=== PATIENT | female | born 1965 | race Caucasian/White ===

== ENCOUNTER 2018-07-30 10:49 | Emergency (ER) | payer BC ==
[2018-07-30 11:11] VITALS: O2SAT 98
[2018-07-30] MEDS ORDERED: ROCEPHIN 1 Gm-D5w 50 ml Bag** 1 G/50 ML IVPB IV STA (11:20)
[2018-07-30] MEDS ORDERED: ROCEPHIN 1 Gm-D5w 50 ml Bag** 1 G/50 ML IVPB IV ONE (11:23)
--- NOTE | 2018-07-30 11:25 | ERPHSYRPT ---
- History of Present Illness Time Seen by Provider: 07/30/18 11:19 Source: patient, family Exam Limitations: no limitations Patient Subjective Stated Complaint: cough and SOB x 1 week. increase feeling of SOB today. staates tightness and feeling that she could not get a deep breath approx 1 hour [employer]. cougheing up green stuff.and nasal congestion.. grand child has RSV Triage Nursing Assessment: alert and slightly anxious. states has had an episode where she feels like she cant get a deep breath and slight tightness. has had a cough where she has coughed up green . has had nasal congestion. her grand daughter has had RSV. Lungs clear bilaterally. Physician History: The patient is a 53-year-old female with her daughter complaining that she has a worsening cough with green sputum for one week. Today she felt like she couldn't take a deep breath. She is a smoker. Her past medical history significant for COPD and diabetes. Timing/Duration: week(s) (1), gradual onset, worse Cough Quality/Degree: moderate, productive cough, sputum (green) Possible Cause: occasional episodes, smoke exposure Modifying Factors: Improves With: coughing Associated Symptoms: cough, shortness of breath, No fever, No wheezing Allergies/Adverse Reactions: No Known Drug Allergies Allergy (Unverified 06/28/16 08:16) Home Medications: Glyburide 2.5 mg PO BID 11/09/15 [History] Metformin HCl 500 mg [Glucophage 500 MG] 500 mg PO BID 11/09/15 [History] Hx Tetanus, Diphtheria Vaccination/Date Given: (unknown) Hx Influenza Vaccination/Date Given: Yes Hx Pneumococcal Vaccination/Date Given: Yes - Review of Systems Constitutional: No Fever, No Chills Eyes: No Symptoms Ears, Nose, & Throat: No Symptoms Respiratory: Cough, Dyspnea, No Wheezing Cardiac: No Chest Pain, No Edema, No Syncope Abdominal/Gastrointestinal: No Abdominal Pain, No Nausea, No Vomiting, No Diarrhea Genitourinary Symptoms: No Dysuria Musculoskeletal: No Back Pain, No Neck Pain Skin: No Rash Neurological: No Dizziness, No Focal Weakness, No Sensory Changes Psychological: No Symptoms Endocrine: No Symptoms Hematologic/Lymphatic: No Symptoms Immunological/Allergic: No Symptoms All Other Systems: Reviewed and Negative - Past Medical History Pertinent Past Medical History: Yes Cardiac History: High Cholesterol Endocrine Medical History: Diabetes Type II Musculoskeletal History: No Pertinent History GI Medical History: No Pertinent History History: No Pertinent History Female Reproductive Disorders: No Pertinent History - Past Surgical History Past Surgical History: Yes Gastrointestinal: Appendectomy Female Surgical History: Hysterectomy - Social History Smoking Status: Current every day smoker How long have you smoked: 25 years Exposure to second hand smoke: No Drug Use: none Patient Lives Alone: No Significant Family History: heart disease, diabetes (mother with PA in her 50's multiple family members with type 2 diabetes) - Female History Hx Now: No - Nursing Vital Signs Nursing Vital Signs: Initial Vital Signs Pulse Rate 79 07/30/18 11:00 Respiratory Rate 18 07/30/18 11:00 Blood Pressure 153/67 07/30/18 11:00 O2 Sat by Pulse Oximetry 98 07/30/18 11:00 Pain Scale Pain Intensity 4 - Physical Exam General Appearance: no apparent distress, alert Eye Exam: PERRL/EOMI, eyes nml inspection Ears, Nose, Throat Exam: normal ENT inspection, TMs normal, pharynx normal, moist mucous membranes Neck Exam: normal inspection, non-tender, supple, full range of motion Respiratory Exam: normal breath sounds, lungs clear, No wheezing Cardiovascular Exam: regular rate/rhythm, normal heart sounds Gastrointestinal/Abdomen Exam: soft, No tenderness Pelvic Exam: not done Rectal Exam: not done Back Exam: normal inspection, No CVA tenderness, No vertebral tenderness Extremity Exam: normal inspection, normal range of motion Neurologic Exam: alert, oriented x 3, cooperative, normal mood/affect, sensation nml, No motor deficits Skin Exam: normal color, warm, dry, No rash Lymphatic Exam: No adenopathy SpO2 Interpretation: normal SpO2: 98 Oxygen Delivery: Room Air Ordered Tests: Active Orders 24 hr Category Date Time Status EKG-ER Only STAT Care 07/30/18 11:13 Active IV Insertion STAT Care 07/30/18 11:13 Active - Progress Air Movement: good Progress Note: 07/30/18 11:25 I discussed the option with the patient of having a chest x-ray followed by antibiotics for no chest x-ray and receiving antibiotic. The patient declined the x-ray and wants antibiotics. Blood Culture(s) Obtained: No Antibiotics given: Yes Counseled pt/family regarding: diagnosis, need for follow-up - Departure Time of Disposition: 11:25 Departure Disposition: Home Clinical Impression: Bronchitis Condition: Stable Critical Care Time: No Referrals: EMEKA GARVIN [Primary Care Provider] - Additional Instructions: You have bronchitis. You were given Rocephin 1 g by IV in the ER. Continue with azithromycin 500 mg on day one followed by 250 mg daily for days 2 through 5. Follow-up with your primary medical doctor on Tuesday as already scheduled. Prescriptions: Azithromycin 250 mg [Zithromax 250 MG TABLET] 250 mg PO ZPACK #6 tablet
[2018-07-30 11:49] VITALS: BP 127/57; PULSE 76
== END 2018-07-30 11:53 | disposition home or self-care (01) ==
LOC: ED 10:49
DX: J40 Bronchitis, not specified as acute or chronic (principal); E11.9 Type 2 diabetes mellitus without complications; Z79.4 Long term (current) use of insulin; E78.00 Pure hypercholesterolemia, unspecified; Z72.0 Tobacco use
CPT/HCPCS: 36000; 93005; 96365; 99284; J0696

== ENCOUNTER 2022-08-18 04:45 | Day surgery (SDC) | payer BC ==
[2022-08-18] MEDS ORDERED: Lactated Ringers 1,000 ML IV SCH (05:30)
[2022-08-18] MEDS ORDERED: CEFAZOLIN 2 GM-D5W BAG** 2 GM/50 ML ML IV SCH (05:30)
[2022-08-18 06:06] LABS: ANION GAP 9.3 MEQ/L (5-15); BLOOD UREA NITROGEN 15 mg/dL (7-17); CHLORIDE 106 mmol/L (98-107); Calcium 9.4 mg/dL (8.4-10.2); Carbon Dioxide 24 mmol/L (22-30); Creatinine 1 0.47 mg/dL (0.52-1.04); EST GLOMERULAR FILTRATION RATE > 60.0 ML/MIN; Glucose 144 mg/dL (74-106); SODIUM 136 mmol/L (137-145)
[2022-08-18] MEDS ORDERED: DIPRIVAN 200 MG/20 ML IV ONE (06:18)
[2022-08-18] MEDS ORDERED: SUBLIMAZE 100 MCG/2 ML ONE (06:18)
[2022-08-18] MEDS ORDERED: Versed 2 MG/2 ML Injection ONE (06:19)
[2022-08-18] MEDS ORDERED: Xylocaine 1% Vial 30 ML PF IJ ONE (06:24)
[2022-08-18] MEDS ORDERED: Zemuron 100 MG/10 ML ONE (06:25)
[2022-08-18] MEDS ORDERED: Marcaine Mpf 0.5% Vial 30 Ml ONE (06:30)
[2022-08-18] MEDS ORDERED: Xylocaine-Mpf 2% 5 Ml Vial ONE (06:40)
[2022-08-18] MEDS ORDERED: BRIDION 200MG/2ML IV ONE (07:32)
--- NOTE | 2022-08-18 08:37 | XRAY ---
32 seconds fluoroscopy time in surgery for soft tissue mass excision of the right foot.
[2022-08-18 09:15] VITALS: BP 129/63; PULSE 72; O2SAT 95
--- NOTE | 2022-08-18 09:41 | XRAY ---
Indication: Right foot soft tissue mass excision. Intraoperative fluoroscopy provided for 32 seconds. 3 digital spot images submitted for interpretation demonstrates manipulation of the great toe. Correlate with intraoperative findings/report.
--- NOTE | 2022-08-18 13:59 | OP ---
SURGERY DATE/TIME: 08/18/2022 0631 PREOPERATIVE DIAGNOSES: 1) Soft tissue mass/neoplasm of unknown origin right hallux. 2) Exostosis distal phalanx hallux. 3) Osteoarthritis interphalangeal joint right hallux. 4) Pain right foot. POSTOPERATIVE DIAGNOSES: 1) Soft tissue mass/neoplasm of unknown origin right hallux. 2) Exostosis distal phalanx hallux. 3) Osteoarthritis interphalangeal joint right hallux. 4) Pain right foot. PROCEDURES: 1) Excision of soft tissue mass/neoplasm of unknown origin. 2) Exostectomy of distal interphalangeal joint. SURGEON: Greg Packer DPM. VENDETTE: None. ANESTHESIA: General plus a postoperative local of 30 cc of 1:1 mixture of 1% lidocaine plain and 0.5% bupivacaine plain injected in a Ramirez type block fashion. HEMOSTASIS: Ankle tourniquet set to 250 mm of Mercury for 23 total tourniquet minutes. ESTIMATED BLOOD LOSS: Minimal. INJECTABLES: 30 cc of 1:1 mixture of 1% lidocaine plain and 0.5% bupivacaine plain. INDICATION FOR SURGERY: Aidee is a very pleasant 57-year-old female who presented to my service with concerns over pain for a callous that was developing underneath hallux of the right foot. The patient indicates that the callous was slowly growing over time and causing her significant amount of pain with ambulation. At this time the patient indicates that the mass started approximately six months ago and has continuously gotten bigger. From that clinical exam revealed that there was pain with palpation to the distal interphalangeal joint and crepitation with range of motion. X-rays were taken confirming exostoses at the medial aspect of the joint. However, the majority of the joint was free of arthritic changes. Given the patient's pain, she did have a significant amount of pain with palpation to the plantar lateral aspect of the interphalangeal joint and for that MRI was obtained. MRI demonstrated a soft tissue mass with dimensions measuring 1.2 x 2.9 x 2.2 cm. From that standpoint the decision was made at the request of the patient to proceed with surgical intervention for removal of the cyst and addressing changes to the medial aspect of the interphalangeal joint. The patient understands all risks, complications and benefits of the procedure including but not limited to infection, hematoma, seroma, possibility of delayed skin healing, possibility of nonskin healing, possibility of failure of surgical intervention, possibility of recurrence of soft tissue mass and possible need for surgical intervention at a later date. No guarantees were provided as to the outcome of surgical intervention at this time. Plenty of time was allowed for the patient to ask questions to her apparent satisfaction. It is with that we decided to proceed. DESCRIPTION OF PROCEDURE AND FINDINGS: The patient is brought into the OR and placed on the OR table in the supine position. At this time general anesthesia was administered until the patient was sedated. The patient's right lower extremity had ankle tourniquet placed and the tourniquet was set to 250 mm of Mercury. At this time the right foot was prepped and draped in the typical sterile fashion and lowered onto the surgical field. At this time attention was directed to the medial aspect of the distal interphalangeal joint of the right hallux. Careful tedious dissection was carried out utilizing a 15 blade at the junction of the moccasin line in order to make sure we did not damage the plantar or sensory nerves in this area. At this time careful dissection was carried down to the plantar aspect of the distal interphalangeal joint where the soft tissue mass was encountered almost immediately. The soft tissue mass was resected being careful not to damage the flexor tendon just dorsal to the incision site. The consistency of the mass of the mass did appear to be similar to that of a ganglion cyst with encapsulation at the plantar lateral aspect of the distal interphalangeal joint. It did look like it extended further proximally which was carried down to the level of the base of the proximal phalanx this was then cauterized with electrocautery on 40. At this time the site was flushed. X-rays were taken demonstrating the exostosis at the distal phalanx this was resected utilizing a combination of rongeurs and a hand rasp. At this time copious amounts of sterile saline were utilized to flush the site. Fluoroscopy was taken demonstrating removal of the exostosis. Copious amounts of sterile saline were utilized to flush the site once more and 4-0 Monocryl was utilized to coapt the subcutaneous edges in a simple buried-type fashion. The skin was then coapted utilizing a 3-0 Nylon in horizontal mattress-type fashion. At this time tourniquet was let down prior to closure at 23 total tourniquet minutes. A dressing consisting of Betadine, Adaptic, 4x4, Kerlix and PHANI were then applied to the right foot. The patient was then reversed from anesthesia and returned to the postoperative anesthesia care unit with vital signs stable and vascular status intact. The patient handled the anesthesia as well as procedure without significant complication. Postoperative orders as indicated in the patient's discharge chart.
== END 2022-08-18 09:05 | disposition home or self-care (01) ==
LOC: SDC 04:45
PROVIDERS: ATTEND Podiatrist Foot & Ankle Surgery
DX: M06.371 Rheumatoid nodule, right ankle and foot (principal); M79.671 Pain in right foot; M19.071 Primary osteoarthritis, right ankle and foot; M25.774 Osteophyte, right foot
CPT/HCPCS: 28124; 28309; 36415; 73630; 76000; 80048; 93005; J0690; J2001; J2250; J2704; J3010

== ENCOUNTER 2023-02-10 17:53 | Observation (INO) | payer BC ==
[2023-02-10 18:51] LABS: Absolute Neutrophil Ct (ANC) 7.38 x10^3/uL (1.4-6.9); BASOPHIL % 0.5 % (0.0-0.4); Basophil (Absolute #) 0.05 x10^3/uL (0-0.4); Eosinophil % 1.2 % (0.00-5.0); Eosinophil (Absolute #) 0.12 x10^3/uL (0-0.5); Hematocrit 40.3 % (35-47); IMMATURE GRAN # 0.02 x10^3u/L (0.00-0.03); IMMATURE GRAN % 0.2 % (0.00-0.4); Lymphocyte (Absolute #) 1.81 x10^3/uL (1.0-4.6); Lymphocytes % 17.6 % (24.0-44.0); Mean Cell Volume 91.4 fL (78-100); Mean Corpuscular Hemoglobin 29.5 pg (26-32); Mean Corpuscular Hgb Concent. 32.3 g/dL (32-36); Mean Platelet Volume 12.5 fL (7.5-11.0); Monocyte (Absolute #) 0.88 x10^3/uL (0.0-1.3); Monocytes % 8.6 % (0.0-12.0); Neutrophil % 71.9 % (36.0-66.0); Platelet Count 162 x10^3/uL (150-450); Red Blood Count 4.41 x10^6/uL (4.1-5.4); Red Cell Distribution Width 13.7 % (11.5-14.0); White Blood Count 10.3 x10^3/uL (4.0-10.5)
[2023-02-10] MEDS ORDERED: PIPERACILLIN/TAZOBACTAM 3.375 GM in Sodium Chloride 100ML MINI-BAG PLUS 100 ML IV ONE (18:55)
[2023-02-10] MEDS ORDERED: VANCOMYCIN 1 GRAM/200 ML BAG 1 GM/200 ML PIGGYBACK IV ONE ×2 (18:56→19:42)
[2023-02-10 19:04] LABS: ALBUMIN 4.7 g/dL (3.5-5.0); ALKALINE PHOSPHATASE 89 U/L (38-126); ANION GAP 15.7 MEQ/L (5-15); BLOOD UREA NITROGEN 8 mg/dL (7-17); CHLORIDE 103 mmol/L (98-107); Calcium 9.6 mg/dL (8.4-10.2); Carbon Dioxide 26 mmol/L (22-30); EST GLOMERULAR FILTRATION RATE > 60.0 ML/MIN; Glucose 163 mg/dL (74-106); SGOT/AST 36 U/L (14-36); SGPT/ALT 25 U/L (0-35); SODIUM 141 mmol/L (137-145)
[2023-02-10] MEDS ORDERED: PIPERACILLIN/TAZOBACTAM IV ONE (19:05)
[2023-02-10] MEDS ORDERED: Sodium Chloride 100ML MINI-BAG PLUS 100 ML IV ONE (19:05)
[2023-02-10] MEDS ORDERED: TYLENOL 325 MG PO STA (19:12)
[2023-02-10] MEDS ORDERED: TYLENOL 325 MG ONE (19:13)
--- NOTE | 2023-02-10 19:17 | ERPHSYRPT ---
- History of Present Illness Time Seen by Provider: 02/10/23 19:09 Source: patient Exam Limitations: no limitations Patient Subjective Stated Complaint: pt here for possible wound infection to bottom of right great toe, she states she had surg on toe in jul 2022 and it dev loped a callouse and this week the callouse fell off and she saw a "black hole" it now has calloused over and has swelling with redness Triage Nursing Assessment: pt alert, walked in, resp easy, skin w/d/p. has callouse to bottom of right great toes, she has swelling to right foot with red streaking goes up right leg Physician History: Patient is a 57-year-old male presents to our ED for evaluation of right foot cellulitis. Patient is a diabetic. Patient had surgery on August 17. Patient states since that time she developed a callus. Patient observed the callus to become infected. Symptoms started Tuesday 5 days ago. Symptoms have progressed. Patient now has cellulitis to the right foot as well as lymphangitis tracking up her leg. No fever or other systemic manifestations. No nausea or vomiting. No trauma. Symptoms are moderate in intensity. No specific worsening improving factors. Patient denies a history of the same. She voices no other complaints or concerns at this time. Portions of this note were created with voice recognition technology. There may be grammatical, spelling, punctuation or sound alike errors Timing/Duration: day(s) Severity: moderate (5 days ago) Modifying Factors: Improves With: nothing Associated Symptoms: denies symptoms Allergies/Adverse Reactions: No Known Drug Allergies Allergy (Verified 02/10/23 18:04) Home Medications: Aspirin [Low Dose Aspirin EC] 81 mg PO DAILY 08/10/22 [History] Cholecalciferol (Vitamin D3) [Vitamin D] 50 mcg PO DAILY 08/10/22 [History] Ezetimibe 10 mg [Zetia 10 MG] 10 mg PO DAILY 08/10/22 [History] Folic Acid 1 mg PO DAILY 08/10/22 [History] Insulin Lispro [Humalog] 2 units SQ TID 08/10/22 [History] Leflunomide 20 mg PO DAILY 08/10/22 [History] Levothyroxine Sodium 50 Mcg [Synthroid 50 Mcg] 75 mcg PO DAILY 08/10/22 [History] Simvastatin 20Mg [Zocor 20Mg] 40 mg PO DAILY 08/10/22 [History] Sitagliptin Phos/Metformin HCl [Janumet Xr 100-1,000 mg Tablet] 50 - 500 mg PO BID 08/10/22 [History] Hx Tetanus, Diphtheria Vaccination/Date Given: No Hx Influenza Vaccination/Date Given: Yes Hx Pneumococcal Vaccination/Date Given: Yes Immunizations Up to Date: Yes Travel Risk - International Travel Have you traveled outside of the country in past 3 weeks: No - Coronavirus Screening Are you exhibiting any of the following symptoms?: No - Vaccine Status Have you recieved a Covid-19 vaccination: Yes [place]: Moderna - Vaccination Dates Date of 2cond Vaccination (if applicable): 2020 - Review of Systems Constitutional: No Symptoms, No Fever, No Chills Eyes: No Symptoms Ears, Nose, & Throat: No Symptoms Respiratory: No Symptoms, No Cough, No Dyspnea Cardiac: No Symptoms, No Chest Pain, No Edema, No Syncope Abdominal/Gastrointestinal: No Symptoms, No Abdominal Pain, No Nausea, No Vomiting, No Diarrhea Genitourinary Symptoms: No Symptoms, No Dysuria Musculoskeletal: No Symptoms, No Back Pain, No Neck Pain Skin: No Symptoms, No Rash Neurological: No Symptoms, No Dizziness, No Focal Weakness, No Sensory Changes Psychological: No Symptoms Endocrine: No Symptoms Hematologic/Lymphatic: No Symptoms Immunological/Allergic: No Symptoms All Other Systems: Reviewed and Negative - Past Medical History Pertinent Past Medical History: Yes Neurological History: No Pertinent History Cardiac History: High Cholesterol Respiratory History: No Pertinent History Endocrine Medical History: Diabetes Type II, Hypothyroidism Musculoskeletal History: No Pertinent History GI Medical History: No Pertinent History History: No Pertinent History Psycho-Social History: No Pertinent History Female Reproductive Disorders: No Pertinent History Other Medical History: rhemotoid arthritis - Past Surgical History Past Surgical History: Yes Neuro Surgical History: No Pertinent History Cardiac: No Pertinent History Respiratory: No Pertinent History Gastrointestinal: Appendectomy Musculoskeletal: Orthopedic Surgery Female Surgical History: Hysterectomy, Tubal Ligation Other Surgical History: surgery both hands and right elbow,foot surg - Social History Smoking Status: Current every day smoker How long have you smoked: 40 yrs Exposure to second hand smoke: Yes Drug Use: none Patient Lives Alone: No Significant Family History: heart disease, diabetes (mother with [place] in her 50's multiple family members with type 2 diabetes) - Nursing Vital Signs Nursing Vital Signs: Initial Vital Signs Temperature 97.9 F 02/10/23 18:14 Pulse Rate 92 H 02/10/23 18:14 Respiratory Rate 18 02/10/23 18:14 Blood Pressure 141/74 02/10/23 18:14 O2 Sat by Pulse Oximetry 95 02/10/23 18:14 Pain Scale Pain Intensity 7 - Physical Exam General Appearance: no apparent distress, alert Eye Exam: PERRL/EOMI, eyes nml inspection Ears, Nose, Throat Exam: normal ENT inspection, TMs normal, pharynx normal, moist mucous membranes Neck Exam: normal inspection, non-tender, supple, full range of motion Respiratory Exam: normal breath sounds, lungs clear, airway intact, No respiratory distress Cardiovascular Exam: regular rate/rhythm, normal heart sounds, normal peripheral pulses Gastrointestinal/Abdomen Exam: soft, normal bowel sounds, No tenderness, No mass Back Exam: normal inspection, normal range of motion, No CVA tenderness, No vertebral tenderness Extremity Exam: normal inspection (Patient's right lower extremity is neurovascular intact distally. Compartments are soft. Cap refill less than 2 seconds.), normal range of motion, pelvis stable, other (Right lower extremity cellulitis and lymphangitis. There is a callus at the plantar aspect of right g reat toe. Cellulitis is spread along the dorsum of the foot and now tracking proximally) Neurologic Exam: alert, oriented x 3, cooperative, normal mood/affect, sensation nml, No motor deficits Skin Exam: normal color, warm, dry, No rash Lymphatic Exam: No adenopathy SpO2 Interpretation: normal SpO2: 95 O2 Delivery: Room Air - Course Nursing assessment & vital signs reviewed: Yes - Radiology Exams Foot X-ray Interpretation: Interpreted by me (NO fracture or dislocation. NO ST abnormalities. ) Ordered Tests: Active Orders 24 hr Category Date Time Status Mash Processing Operator STAT Care 02/10/23 18:28 Active IV Insertion STAT Care 02/10/23 18:28 Active FOOT (MINIMUM 3 VIEWS) Stat Exams 02/10/23 19:31 Taken BLOOD CULTURE Stat Lab 02/10/23 18:47 Received CBC W DIFF Stat Lab 02/10/23 18:46 Completed CMP Stat Lab 02/10/23 18:46 Completed Lactic Acid Stat Lab 02/10/23 18:55 Completed UA W/RFX UR CULTURE Stat Lab 02/10/23 19:15 Completed Transfer Order Routine Transfer 02/10/23 Ordered Medication Summary Generic Name Dose Route Start Last Admin Trade Name Prasanth PRN Reason Stop Dose Admin Vancomycin HCl 1 gm in 200 mls @ 125 mls/hr 02/10/23 18:56 02/10/23 19:44 Vancomycin 1 Gram/200 Ml Bag IV 02/10/23 20:31 125 ml/hr STAT ONE 125 mls/hr Administration Discontinued Medications Generic Name Dose Route Start Last Admin Trade Name Prasanth PRN Reason Stop Dose Admin Acetaminophen 650 mg 02/10/23 19:12 02/10/23 19:14 Acetaminophen 325 Mg Tablet PO 02/10/23 19:13 650 mg STAT STA Administration Acetaminophen Confirm 02/10/23 19:13 Acetaminophen 325 Mg Tablet Administered 02/10/23 19:14 Dose 650 mg .ROUTE .STK-MED ONE Piperacillin Sod/Tazobactam 100 mls @ 200 mls/hr 02/10/23 18:55 02/10/23 19:08 Sod 3.375 gm/ Sodium Chloride IV 02/10/23 19:24 200 mls/hr STAT ONE Administration Sodium Chloride Confirm 02/10/23 19:05 Sodium Chloride 100ml Mini-Bag Plus Administered 02/10/23 19:06 Dose 100 mls @ ud IV .STK-MED ONE Vancomycin HCl Confirm 02/10/23 19:42 Vancomycin 1 Gram/200 Ml Bag Administered 02/10/23 19:43 Dose 1 gm in 200 mls @ ud IV .STK-MED ONE Piperacillin Sod/Tazobactam Sod Confirm 02/10/23 19:05 Piperacillin/Tazobactam Sodium 3.375 Gm Vial Administered 02/10/23 19:06 Dose 3.375 gm IV .STK-MED ONE Lab/Rad Data: Laboratory Result Diagrams 02/10/23 18:46 02/10/23 18:46 Laboratory Results 02/10/23 02/10/23 02/10/23 Range/Units 19:15 18:55 18:46 WBC (4.0-10.5) x10^3/uL RBC (4.1-5.4) x10^6/uL Hgb (12.0-16.0) g/dL Hct (35-47) % MCV (78-100) fL MCH (26-32) pg MCHC (32-36) g/dL RDW (11.5-14.0) % Plt Count (150-450) x10^3/uL MPV (7.5-11.0) fL Gran % (36.0-66.0) % Immature Gran % (Auto) (0.00-0.4) % Nucleat RBC Rel Count (0.00-0.1) % Eos # (Auto) (0-0.5) x10^3/uL Immature Gran # (Auto) (0.00-0.03) x10^3u/L Absolute Lymphs (auto) (1.0-4.6) x10^3/uL Absolute Monos (auto) (0.0-1.3) x10^3/uL Absolute Nucleated RBC (0.00-0.01) x10^3u/L Lymphocytes % (24.0-44.0) % Monocytes % (0.0-12.0) % Eosinophils % (0.00-5.0) % Basophils % (0.0-0.4) % Absolute Granulocytes (1.4-6.9) x10^3/uL Basophils # (0-0.4) x10^3/uL Sodium 141 (137-145) mmol/L Potassium 4.0 (3.5-5.1) mmol/L Chloride 103 (98-107) mmol/L Carbon Dioxide 26 (22-30) mmol/L Anion Gap 15.7 H (5-15) MEQ/L BUN 8 (7-17) mg/dL Creatinine 0.50 L (0.52-1.04) mg/dL Estimated GFR > 60.0 ML/MIN Glucose 163 H (74-106) mg/dL Lactic Acid 1.4 (0.4-2.0) Calcium 9.6 (8.4-10.2) mg/dL Total Bilirubin 0.60 (0.2-1.3) mg/dL AST 36 (14-36) U/L ALT 25 (0-35) U/L Alkaline Phosphatase 89 (38-126) U/L Serum Total Protein 9.0 H (6.3-8.2) g/dL Albumin 4.7 (3.5-5.0) g/dL Urine Color Yellow (Yellow) Urine Appearance Clear (Clear) Urine pH 7.0 (4.6-8.0) Ur Specific [place] <=1.005 (1.005-1.030) Urine Protein Negative (Negative) Urine Glucose (UA) Negative (Negative) mg/dL Urine Ketones Negative (Negative) Urine Blood Negative (Negative) Urine Nitrite Negative (Negative) Urine Bilirubin Negative (Negative) Urine Urobilinogen 0.2 (0.2) mg/dL Ur Leukocyte Esterase Negative (Negative) U Hyaline Cast (Auto) NONE SEEN (0-2) /LPF Urine Microscopic RBC 0-2 (0-5) /HPF Urine Microscopic WBC 0-2 (0-5) /HPF Ur Epithelial Cells None Seen (None Seen) /HPF Urine Bacteria None Seen (None Seen) /HPF Urine Culture Reflexed NO (NO) 02/10/23 Range/Units 18:46 WBC 10.3 (4.0-10.5) x10^3/uL RBC 4.41 (4.1-5.4) x10^6/uL Hgb 13.0 (12.0-16.0) g/dL Hct 40.3 (35-47) % MCV 91.4 (78-100) fL MCH 29.5 (26-32) pg MCHC 32.3 (32-36) g/dL RDW 13.7 (11.5-14.0) % Plt Count 162 (150-450) x10^3/uL MPV 12.5 H (7.5-11.0) fL Gran % 71.9 H (36.0-66.0) % Immature Gran % (Auto) 0.2 (0.00-0.4) % Nucleat RBC Rel Count 0.0 (0.00-0.1) % Eos # (Auto) 0.12 (0-0.5) x10^3/uL Immature Gran # (Auto) 0.02 (0.00-0.03) x10^3u/L Absolute Lymphs (auto) 1.81 (1.0-4.6) x10^3/uL Absolute Monos (auto) 0.88 (0.0-1.3) x10^3/uL Absolute Nucleated RBC 0.00 (0.00-0.01) x10^3u/L Lymphocytes % 17.6 L (24.0-44.0) % Monocytes % 8.6 (0.0-12.0) % Eosinophils % 1.2 (0.00-5.0) % Basophils % 0.5 (0.0-0.4) % Absolute Granulocytes 7.38 H (1.4-6.9) x10^3/uL Basophils # 0.05 (0-0.4) x10^3/uL Sodium (137-145) mmol/L Potassium (3.5-5.1) mmol/L Chloride (98-107) mmol/L Carbon Dioxide (22-30) mmol/L Anion Gap (5-15) MEQ/L BUN (7-17) mg/dL Creatinine (0.52-1.04) mg/dL Estimated GFR ML/MIN Glucose (74-106) mg/dL Lactic Acid (0.4-2.0) Calcium (8.4-10.2) mg/dL Total Bilirubin (0.2-1.3) mg/dL AST (14-36) U/L ALT (0-35) U/L Alkaline Phosphatase (38-126) U/L Serum Total Protein (6.3-8.2) g/dL Albumin (3.5-5.0) g/dL Urine Color (Yellow) Urine Appearance (Clear) Urine pH (4.6-8.0) Ur Specific [place] (1.005-1.030) Urine Protein (Negative) Urine Glucose (UA) (Negative) mg/dL Urine Ketones (Negative) Urine Blood (Negative) Urine Nitrite (Negative) Urine Bilirubin (Negative) Urine Urobilinogen (0.2) mg/dL Ur Leukocyte Esterase (Negative) U Hyaline Cast (Auto) (0-2) /LPF Urine Microscopic RBC (0-5) /HPF Urine Microscopic WBC (0-5) /HPF Ur Epithelial Cells (None Seen) /HPF Urine Bacteria (None Seen) /HPF Urine Culture Reflexed (NO) - Progress Progress: improved Progress Note: Case discussed with Dr. Orellana at 7:30 PM who accepts admission to observation. 57-year-old female history of diabetes presents to our ED with cellulitis and lymphangitis tracking up her right leg. No trauma. No fever or systemic manifestations. Blood cultures obtained. CBC CMP obtained. No leukocytosis. Lactic acid normal. Patient received Vanco Zosyn. Tylenol for pain control per patient's request. Foot x-ray negative for fracture dislocation. No soft tissue gas observed. Age gender, PMH/PQ , (co-morbidities that complicate presentation) , med class, PSH, (smoker) method of arrival, CC (acute, chronic or acute on chronic), State COPA level and why or if critical. vitals, Significant ROS/PE findings, working diagnoses, Complexity of problem addressed is moderate acute complicated No critical care time Complex of data reviewed and analyzed is extensive. Patient served as independent historian. Test ordered reviewed and analyzed by Dr. Hoang including x-ray of the right foot. Management discussed with accepting physician Dr. Orellana Risk of complication and or risk morbidity/mortality of patient management is high. Patient will require hospitalization for further evaluation and treatment of underlying extremity infection Patient agrees to admission [facility] for further evaluation and treatment. 02/10/23 19:52 Counseled pt/family regarding: diagnosis, rad results - Departure Departure Disposition: Observation Clinical Impression: Cellulitis, Lymphangitis, Hx of diabetes mellitus Condition: Stable Critical Care Time: No Referrals: HYUN PEREZ NP [Primary Care Provider] - Follow up/PCP as directed
[2023-02-10 19:27] LABS: Appearance Clear (Clear); Bacteria None Seen /HPF (None Seen); Bilirubin Negative (Negative); Blood Negative (Negative); Epithelial Cells None Seen /HPF (None Seen); Glucose, Urine Negative (Negative); Hyaline Casts NONE SEEN /LPF (0-2); Ketones Negative (Negative); Leukocyte Esterase Negative (Negative); Nitrite Negative (Negative); Protein,Urine Dip Negative (Negative); RBC 0-2 /HPF (0-5); Specific Gravity <=1.005 (1.005-1.030); Urobilinogen 0.2 mg/dL (0.2); WBC 0-2 /HPF (0-5)
[2023-02-10 19:30] LABS: ADD URINE CULTURE? NO (NO)
[2023-02-10] MEDS ORDERED: TYLENOL 325 MG PO PRN (20:10)
[2023-02-10] MEDS ORDERED: MOTRIN 600 MG PO PRN (22:40)
[2023-02-10] MEDS ORDERED: VANCOMYCIN 1 GRAM/200 ML BAG 1 GM/200 ML PIGGYBACK IV SCH (22:45)
--- NOTE | 2023-02-10 22:47 | PCM.HP ---
History of Present Illness - Chief Complaint Chief Complaint: Cellulitis/lymphangitis History of Present Illness: Ms. Harkins is a 57 year-old female with HTN, HLD, DM2, RA, and hypothyroidism who presents with cellulitis. She admits to a foot sore that developed a while ago under her right big toe, increased swelling in her lower right leg for a few days, and redness/erythema/pain starting today. Upon arrival, laboratory data and radiology were unremarkable, and on my examination, she is resting comfortably denying any current fevers, chills, nausea, vomiting, diarrhea, syncope, presyncope, visual changes, orthopnea, PND, odynophagia, dysphagia, chest pain, shortness of breath, belly pain, dysuria, hematuria, melena, hematochezia, or neurological changes. All other systems were reviewed and were negative. - Review of Systems Constitutional: Other (As per HPI) Medications & Allergies Home Medications: Home Medication List Aspirin [Low Dose Aspirin EC] 81 mg PO DAILY 08/10/22 [History Confirmed 02/10/23] Cholecalciferol (Vitamin D3) [Vitamin D] 50 mcg PO DAILY 08/10/22 [History Confirmed 02/10/23] Folic Acid 1 mg PO DAILY 08/10/22 [History Confirmed 02/10/23] Leflunomide 20 mg PO DAILY 08/10/22 [History Confirmed 02/10/23] Levothyroxine Sodium 50 Mcg [Synthroid 50 Mcg] 75 mcg PO DAILY 08/10/22 [History Confirmed 02/10/23] Sitagliptin Phos/Metformin HCl [Janumet Xr 100-1,000 mg Tablet] 50 - 500 mg PO BID 08/10/22 [History Confirmed 02/10/23] Ezetimibe/Simvastatin [Ezetimibe-Simvastatin 10-40 mg] 1 tab PO DAILY 02/10/23 [History Confirmed 02/10/23] Insulin Glargine,Hum.rec.anlog [Alma Rosa Alfaro] 10 unit SQ DAILY 02/10/23 [History Confirmed 02/10/23] Insulin Lispro [Humalog] See Protocol SQ UD 02/10/23 [History Confirmed 02/10/23] Allergies/Adverse Reactions: Allergies Allergy/AdvReac Type Severity Reaction Status Date / Time No Known Drug Allergies Allergy Verified 02/10/23 18:04 - Past Medical History Past Medical History: Yes Neurological History: No Pertinent History ENT History: No Pertinent History Cardiac History: High Cholesterol Respiratory History: No Pertinent History Endocrine Medical History: Diabetes Type II, Hypothyroidism Musculoskelatal History: No Pertinent History GI Medical History: No Pertinent History History: No Pertinent History Pyscho-Social History: No Pertinent History Reproductive Disorders: No Pertinent History Comment: rhemotoid arthritis. HASIMOTOS - Female History Are you now?: No - Past Surgical History Past Surgical History: Yes Neuro Surgical History: No Pertinent History Cardiac History: No Pertinent History Respiratory Surgery: No Pertinent History GI Surgical History: Appendectomy Musculskeletal Surgical Hx: Orthopedic Surgery Female Surgical History: Hysterectomy, Tubal Ligation Other Surgical History: surgery both hands and right elbow,foot surg - Social History Smoking Status: Current every day smoker How long have you smoked: 40 yrs Exposure to second hand smoke: Yes Alcohol: Occasionally Drug Use: none Significant Family History: heart disease, diabetes (mother with [place] in her 50's multiple family members with type 2 diabetes) - Physical Exam Vital Signs: Vital Signs - 24 hr Temp Pulse Resp BP Pulse Ox 02/10/23 21:03 97.3 F 77 18 143/66 97 02/10/23 19:58 95 02/10/23 19:10 88 18 143/83 96 02/10/23 18:14 97.9 F 92 H 18 141/74 95 General Appearance: no apparent distress Neurologic Exam: alert, oriented x 3 Eye Exam: PERRL/EOMI Ears, Nose, Throat Exam: normal ENT inspection Neck Exam: normal inspection Respiratory Exam: normal breath sounds Cardiovascular Exam: regular rate/rhythm Gastrointestinal/Abdomen Exam: soft, normal bowel sounds Pelvic Exam: not done Rectal Exam: deferred Back Exam: normal inspection Extremity Exam: other (swelling and redness to right leg) Skin Exam: rash Wound Assessment: Skin/Wound Assessment Wound/Incision Assessment Start: 02/10/23 21:46 Text: Status: Active Freq: Protocol: Document 02/10/23 21:30 MS (Rec: 02/10/23 21:48 MS [id number]) Wound/Incision Assessment Right Toe Wound Assessment Admission Wound Stage Non Pressure Wound Drainage Amount None Surrounding Tissue [place],Bright Red Wound Photo Photo Taken Yes Date: 02/10/23 Time: 21:30 Results - Labs Lab/Micro Results: Lab Results-Last 24 Hours 02/10/23 02/10/23 02/10/23 Range/Units 18:46 18:46 18:55 WBC 10.3 (4.0-10.5) x10^3/uL RBC 4.41 (4.1-5.4) x10^6/uL Hgb 13.0 (12.0-16.0) g/dL Hct 40.3 (35-47) % MCV 91.4 (78-100) fL MCH 29.5 (26-32) pg MCHC 32.3 (32-36) g/dL RDW 13.7 (11.5-14.0) % Plt Count 162 (150-450) x10^3/uL MPV 12.5 H (7.5-11.0) fL Gran % 71.9 H (36.0-66.0) % Immature Gran % (Auto) 0.2 (0.00-0.4) % Nucleat RBC Rel Count 0.0 (0.00-0.1) % Eos # (Auto) 0.12 (0-0.5) x10^3/uL Immature Gran # (Auto) 0.02 (0.00-0.03) x10^3u/L Absolute Lymphs (auto) 1.81 (1.0-4.6) x10^3/uL Absolute Monos (auto) 0.88 (0.0-1.3) x10^3/uL Absolute Nucleated RBC 0.00 (0.00-0.01) x10^3u/L Lymphocytes % 17.6 L (24.0-44.0) % Monocytes % 8.6 (0.0-12.0) % Eosinophils % 1.2 (0.00-5.0) % Basophils % 0.5 (0.0-0.4) % Absolute Granulocytes 7.38 H (1.4-6.9) x10^3/uL Basophils # 0.05 (0-0.4) x10^3/uL Sodium 141 (137-145) mmol/L Potassium 4.0 (3.5-5.1) mmol/L Chloride 103 (98-107) mmol/L Carbon Dioxide 26 (22-30) mmol/L Anion Gap 15.7 H (5-15) MEQ/L BUN 8 (7-17) mg/dL Creatinine 0.50 L (0.52-1.04) mg/dL Estimated GFR > 60.0 ML/MIN Glucose 163 H (74-106) mg/dL POC Glucometer (74 to 106) mg/dL Lactic Acid 1.4 (0.4-2.0) Calcium 9.6 (8.4-10.2) mg/dL Total Bilirubin 0.60 (0.2-1.3) mg/dL AST 36 (14-36) U/L ALT 25 (0-35) U/L Alkaline Phosphatase 89 (38-126) U/L Serum Total Protein 9.0 H (6.3-8.2) g/dL Albumin 4.7 (3.5-5.0) g/dL Urine Color (Yellow) Urine Appearance (Clear) Urine pH (4.6-8.0) Ur Specific [place] (1.005-1.030) Urine Protein (Negative) Urine Glucose (UA) (Negative) mg/dL Urine Ketones (Negative) Urine Blood (Negative) Urine Nitrite (Negative) Urine Bilirubin (Negative) Urine Urobilinogen (0.2) mg/dL Ur Leukocyte Esterase (Negative) U Hyaline Cast (Auto) (0-2) /LPF Urine Microscopic RBC (0-5) /HPF Urine Microscopic WBC (0-5) /HPF Ur Epithelial Cells (None Seen) /HPF Urine Bacteria (None Seen) /HPF Urine Culture Reflexed (NO) 02/10/23 02/10/23 Range/Units 19:15 21:46 WBC (4.0-10.5) x10^3/uL RBC (4.1-5.4) x10^6/uL Hgb (12.0-16.0) g/dL Hct (35-47) % MCV (78-100) fL MCH (26-32) pg MCHC (32-36) g/dL RDW (11.5-14.0) % Plt Count (150-450) x10^3/uL MPV (7.5-11.0) fL Gran % (36.0-66.0) % Immature Gran % (Auto) (0.00-0.4) % Nucleat RBC Rel Count (0.00-0.1) % Eos # (Auto) (0-0.5) x10^3/uL Immature Gran # (Auto) (0.00-0.03) x10^3u/L Absolute Lymphs (auto) (1.0-4.6) x10^3/uL Absolute Monos (auto) (0.0-1.3) x10^3/uL Absolute Nucleated RBC (0.00-0.01) x10^3u/L Lymphocytes % (24.0-44.0) % Monocytes % (0.0-12.0) % Eosinophils % (0.00-5.0) % Basophils % (0.0-0.4) % Absolute Granulocytes (1.4-6.9) x10^3/uL Basophils # (0-0.4) x10^3/uL Sodium (137-145) mmol/L Potassium (3.5-5.1) mmol/L Chloride (98-107) mmol/L Carbon Dioxide (22-30) mmol/L Anion Gap (5-15) MEQ/L BUN (7-17) mg/dL Creatinine (0.52-1.04) mg/dL Estimated GFR ML/MIN Glucose (74-106) mg/dL POC Glucometer 189 H (74 to 106) mg/dL Lactic Acid (0.4-2.0) Calcium (8.4-10.2) mg/dL Total Bilirubin (0.2-1.3) mg/dL AST (14-36) U/L ALT (0-35) U/L Alkaline Phosphatase (38-126) U/L Serum Total Protein (6.3-8.2) g/dL Albumin (3.5-5.0) g/dL Urine Color Yellow (Yellow) Urine Appearance Clear (Clear) Urine pH 7.0 (4.6-8.0) Ur Specific [place] <=1.005 (1.005-1.030) Urine Protein Negative (Negative) Urine Glucose (UA) Negative (Negative) mg/dL Urine Ketones Negative (Negative) Urine Blood Negative (Negative) Urine Nitrite Negative (Negative) Urine Bilirubin Negative (Negative) Urine Urobilinogen 0.2 (0.2) mg/dL Ur Leukocyte Esterase Negative (Negative) U Hyaline Cast (Auto) NONE SEEN (0-2) /LPF Urine Microscopic RBC 0-2 (0-5) /HPF Urine Microscopic WBC 0-2 (0-5) /HPF Ur Epithelial Cells None Seen (None Seen) /HPF Urine Bacteria None Seen (None Seen) /HPF Urine Culture Reflexed NO (NO) - Radiology Impressions Radiology Exams & Impressions: Radiology Procedures Category Date Time Status FOOT (MINIMUM 3 VIEWS) Stat Exams 02/10/23 19:31 Taken Assessment/Plan (1) Cellulitis Current Visit: Yes Status: Acute Assessment & Plan: ASSESSMENT 1. Cellulitis 2. Hypertension 3. Hyperlipidemia 4. Type II Diabetes Mellitus 5. Rheumatoid Arthritis 6. Hypothyroidism PLAN 1. Broad Abx 2. Podiatry Consult 3. XR read pending 4. US of RLE 5. Glargine + ISS 6. Continue home medications Lovenox/PPI Critical Care Time: 60 Minutes The entirety of this encounter was done via telemedicine Abdias Orellana MD Pulmonary and Critical Care Medicine Code(s): L03.90 - CELLULITIS, UNSPECIFIED Telemedicine Encounter - Telemedicine Encounter Telemedicine Encounter: The entirety of this encounter was performed via Telemedicine"
[2023-02-10] MEDS: MOTRIN 400 MG PO PRN (23:08)
[2023-02-11] MEDS ORDERED: Sodium Chloride 100ML MINI-BAG PLUS 100 ML IV ONE ×2 (00:15→05:18)
[2023-02-11] MEDS ORDERED: PIPERACILLIN/TAZOBACTAM IV ONE ×2 (00:15→05:18)
[2023-02-11] MEDS: PIPERACILLIN/TAZOBACTAM 3.375 GM in Sodium Chloride 100ML MINI-BAG PLUS 100 ML IV SCH ×4 (00:27→18:30)
[2023-02-11] MEDS: TYLENOL EXTRA STRENGTH 500 MG PO PRN (00:59)
[2023-02-11 05:05] LABS: Absolute Neutrophil Ct (ANC) 4.14 x10^3/uL (1.4-6.9); BASOPHIL % 0.5 % (0.0-0.4); Basophil (Absolute #) 0.04 x10^3/uL (0-0.4); Eosinophil % 2.3 % (0.00-5.0); Eosinophil (Absolute #) 0.17 x10^3/uL (0-0.5); Hematocrit 40.8 % (35-47); IMMATURE GRAN # 0.02 x10^3u/L (0.00-0.03); IMMATURE GRAN % 0.3 % (0.00-0.4); Lymphocyte (Absolute #) 2.37 x10^3/uL (1.0-4.6); Lymphocytes % 31.7 % (24.0-44.0); Mean Cell Volume 91.7 fL (78-100); Mean Corpuscular Hemoglobin 29.2 pg (26-32); Mean Corpuscular Hgb Concent. 31.9 g/dL (32-36); Mean Platelet Volume 12.9 fL (7.5-11.0); Monocyte (Absolute #) 0.74 x10^3/uL (0.0-1.3); Monocytes % 9.9 % (0.0-12.0); Neutrophil % 55.3 % (36.0-66.0); Platelet Count 166 x10^3/uL (150-450); Red Blood Count 4.45 x10^6/uL (4.1-5.4); Red Cell Distribution Width 13.9 % (11.5-14.0); White Blood Count 7.5 x10^3/uL (4.0-10.5)
[2023-02-11 05:30] LABS: ALBUMIN 4.2 g/dL (3.5-5.0); ALKALINE PHOSPHATASE 92 U/L (38-126); ANION GAP 12.6 MEQ/L (5-15); BLOOD UREA NITROGEN 11 mg/dL (7-17); CHLORIDE 105 mmol/L (98-107); Calcium 9.1 mg/dL (8.4-10.2); Carbon Dioxide 27 mmol/L (22-30); Creatinine 1 0.65 mg/dL (0.52-1.04); EST GLOMERULAR FILTRATION RATE > 60.0 ML/MIN; Glucose 110 mg/dL (74-106); Potassium 3.8 mmol/L (3.5-5.1); SGOT/AST 32 U/L (14-36); SGPT/ALT 24 U/L (0-35); SODIUM 141 mmol/L (137-145); Total Protein 8.1 g/dL (6.3-8.2)
[2023-02-11] MEDS: MOTRIN 400 MG PO PRN ×2 (06:07→22:37)
--- NOTE | 2023-02-11 08:39 | XRAY ---
Indication: Swelling and erythema. Cellulitis. Comparison: August 24, 2022 3 nonweightbearing views right foot unchanged again demonstrating osteopenia, mild pes planus, posterior heel spur, old 5th proximal phalange fracture, cuboid accessory ossicle, and great toe soft tissue swelling. No new bony, articular, or soft tissue abnormalities.
[2023-02-11] MEDS ORDERED: MEDICATION INTERVENTION MC SCH (09:00)
[2023-02-11] MEDS ORDERED: SIMVASTATIN PO SCH (10:00)
[2023-02-11] MEDS ORDERED: [UNRECOGNIZED DRUG - OTHER] PO SCH (10:00)
[2023-02-11] MEDS ORDERED: NON-FORMULARY ITEM (Insulin Glargine,Hum.Rec.Anlog [Toujeo Solostar] 300 UNIT/ML Insuln.Pe SQ SCH (10:00)
[2023-02-11] MEDS ORDERED: [UNRECOGNIZED DRUG - OTHER] PO SCH (10:00)
[2023-02-11] MEDS ORDERED: EZETIMIBE PO SCH (10:00)
[2023-02-11] MEDS ORDERED: SYNTHROID 50 MCG PO SCH (10:00)
[2023-02-11] MEDS ORDERED: SITAGLIPTIN PHOS PO SCH (10:00)
[2023-02-11] MEDS ORDERED: METFORMIN HCL PO SCH (10:00)
[2023-02-11] MEDS ORDERED: NON-FORMULARY ITEM (Leflunomide [Leflunomide] 20 MG Tablet) PO SCH (10:00)
[2023-02-11] MEDS: VITAMIN D PO SCH (10:37)
[2023-02-11] MEDS: ECOTRIN 81 MG PO SCH (10:37)
[2023-02-11] MEDS: SYNTHROID 75 MCG PO SCH (10:38)
[2023-02-11] MEDS: FOLATE 1 MG PO SCH (10:38)
[2023-02-11] MEDS: Glucophage 500 MG PO SCH ×2 (10:39→18:28)
[2023-02-11] MEDS: Zetia 10 MG PO SCH (10:40)
[2023-02-11] MEDS: VANCOMYCIN 1 GRAM/200 ML BAG 1 GM/200 ML PIGGYBACK IV SCH ×2 (10:43→22:38)
--- NOTE | 2023-02-11 10:45 | XRAY ---
Indication: Pain and swelling. Two-dimensional sonogram and color Doppler imaging of the major venous vessels of the right leg performed. Comparison: None No thrombus seen in the examined deep venous vessels of the right leg including greater saphenous vein. Veins demonstrate normal compressibility. Venous waveforms are normal with and without augmentation. Impression: Right leg negative for DVT.
[2023-02-11] MEDS: ENOXAPARIN SODIUM SQ SCH (10:48)
--- NOTE | 2023-02-11 15:04 | XRAY ---
Indication: Great toe diabetic ulcer. Sagittal, coronal, and axial MRI right forefoot performed without contrast using T1, T2, and STIR sequences. Comparison: None Several sequences degraded by motion artifact. Great toe demonstrates diffuse plantar subcutaneous soft tissue/swelling signal. No focal solid/cystic soft tissue mass or abnormal fluid collection. Distal phalanx great toe also demonstrates bone edema signal favoring osteomyelitis. Elsewhere no acute fracture, dislocation, or suspicious bony lesions. Impression: 1. Motion artifact. 2. Great toe cellulitis with osteomyelitis involving distal phalanx.
[2023-02-11] MEDS ORDERED: Marcaine Mpf 0.5% Vial 30 Ml ONE (17:07)
[2023-02-11] MEDS ORDERED: Xylocaine 1% Vial 30 ML PF IJ ONE (17:07)
[2023-02-11] MEDS: Januvia 50 MG PO SCH (18:28)
[2023-02-11] MEDS: Lantus Insulin SQ SCH (18:29)
[2023-02-11] MEDS ORDERED: Hydromorphone 1 mg/ml Injection IV PRN (19:59)
[2023-02-11] MEDS ORDERED: NORCO 7.5/325 MG TAB PO PRN (20:02)
[2023-02-11] MEDS: ZOCOR 20MG PO SCH (22:38)
[2023-02-12] MEDS: PIPERACILLIN/TAZOBACTAM 3.375 GM in Sodium Chloride 100ML MINI-BAG PLUS 100 ML IV SCH ×5 (00:14→23:21)
[2023-02-12] MEDS: TYLENOL EXTRA STRENGTH 500 MG PO PRN (02:28)
[2023-02-12] MEDS: MOTRIN 400 MG PO PRN (04:41)
[2023-02-12 06:00] LABS: Absolute Neutrophil Ct (ANC) 4.06 x10^3/uL (1.4-6.9); BASOPHIL % 0.7 % (0.0-0.4); Basophil (Absolute #) 0.05 x10^3/uL (0-0.4); Eosinophil % 2.9 % (0.00-5.0); Eosinophil (Absolute #) 0.21 x10^3/uL (0-0.5); Hematocrit 40.5 % (35-47); Hemoglobin 12.8 g/dL (12.0-16.0); IMMATURE GRAN # 0.03 x10^3u/L (0.00-0.03); IMMATURE GRAN % 0.4 % (0.00-0.4); Lymphocyte (Absolute #) 2.31 x10^3/uL (1.0-4.6); Lymphocytes % 31.5 % (24.0-44.0); Mean Cell Volume 92.7 fL (78-100); Mean Corpuscular Hemoglobin 29.3 pg (26-32); Mean Corpuscular Hgb Concent. 31.6 g/dL (32-36); Mean Platelet Volume 12.8 fL (7.5-11.0); Monocyte (Absolute #) 0.68 x10^3/uL (0.0-1.3); Monocytes % 9.3 % (0.0-12.0); Neutrophil % 55.2 % (36.0-66.0); Platelet Count 178 x10^3/uL (150-450); Red Blood Count 4.37 x10^6/uL (4.1-5.4); Red Cell Distribution Width 13.8 % (11.5-14.0); White Blood Count 7.3 x10^3/uL (4.0-10.5)
[2023-02-12 06:17] LABS: ANION GAP 12.8 MEQ/L (5-15); BLOOD UREA NITROGEN 11 mg/dL (7-17); CHLORIDE 102 mmol/L (98-107); Calcium 9.4 mg/dL (8.4-10.2); Carbon Dioxide 27 mmol/L (22-30); EST GLOMERULAR FILTRATION RATE > 60.0 ML/MIN; Glucose 102 mg/dL (74-106); Potassium 3.9 mmol/L (3.5-5.1); SODIUM 138 mmol/L (137-145)
--- NOTE | 2023-02-12 08:23 | PCM.NOTE ---
Date and Time: 02/12/23814 Subjective Assessment: POD#1 s/p I&D w bone debridement (open) + bone biopsy. Patient restless however denies any constitutional symptoms. Cellulitis appears to be resolving by her account. Minimal pain. No other complaints. Physical Exam - Neuro Neurologic: Epicritic and protopathic (intact) - Vascular Peripheral Pulses: Posterior tibialis: 2+, Dorsalis-Pedis: 2+ Capillary Refill Time: < 3 seconds Hair Growth: Symmetrical and Bilateral Edema: None Skin: Supple, not atrophic - Narrative Narrative Physical Exam: Podiatry Physical Exam OBJECTIVE DATA Vital Signs: Vital Signs - 24 hr Temp Pulse Resp BP Pulse Ox 02/12/23 04:00 97.3 F 60 18 109/53 95 02/11/23 23:37 97.8 F 71 18 142/66 97 02/11/23 20:00 97.1 F 77 18 133/63 96 02/11/23 19:54 97.1 F 77 18 133/63 96 02/11/23 16:18 97.5 F 77 16 116/54 97 02/11/23 16:00 97.5 F 77 16 116/54 97 02/11/23 11:44 97.9 F 66 16 135/62 97 Pain Assessment - Last Documented Pain Intensity 0 Pain Scale Used 0-10 Pain Scale Intake and Output: Intake & Output 02/09/23 02/10/23 02/11/23 02/12/23 11:59 11:59 11:59 11:59 Intake Total 1640 1280 Balance 1640 1280 Weight 54.9 kg 54.9 kg Lab Results: Lab Results-Last 24 Hours 02/11/23 02/11/23 02/11/23 Range/Units 11:30 16:17 20:10 WBC (4.0-10.5) x10^3/uL RBC (4.1-5.4) x10^6/uL Hgb (12.0-16.0) g/dL Hct (35-47) % MCV (78-100) fL MCH (26-32) pg MCHC (32-36) g/dL RDW (11.5-14.0) % Plt Count (150-450) x10^3/uL MPV (7.5-11.0) fL Gran % (36.0-66.0) % Immature Gran % (Auto) (0.00-0.4) % Nucleat RBC Rel Count (0.00-0.1) % Eos # (Auto) (0-0.5) x10^3/uL Immature Gran # (Auto) (0.00-0.03) x10^3u/L Absolute Lymphs (auto) (1.0-4.6) x10^3/uL Absolute Monos (auto) (0.0-1.3) x10^3/uL Absolute Nucleated RBC (0.00-0.01) x10^3u/L Lymphocytes % (24.0-44.0) % Monocytes % (0.0-12.0) % Eosinophils % (0.00-5.0) % Basophils % (0.0-0.4) % Absolute Granulocytes (1.4-6.9) x10^3/uL Basophils # (0-0.4) x10^3/uL Sodium (137-145) mmol/L Potassium (3.5-5.1) mmol/L Chloride (98-107) mmol/L Carbon Dioxide (22-30) mmol/L Anion Gap (5-15) MEQ/L BUN (7-17) mg/dL Creatinine (0.52-1.04) mg/dL Estimated GFR ML/MIN Glucose (74-106) mg/dL POC Glucometer 127 H 174 H 120 H (74 to 106) mg/dL Hemoglobin A1c (4.5-6.0) % Calcium (8.4-10.2) mg/dL 02/11/23 02/12/23 02/12/23 Range/Units Unknown 00:04 04:39 WBC (4.0-10.5) x10^3/uL RBC (4.1-5.4) x10^6/uL Hgb (12.0-16.0) g/dL Hct (35-47) % MCV (78-100) fL MCH (26-32) pg MCHC (32-36) g/dL RDW (11.5-14.0) % Plt Count (150-450) x10^3/uL MPV (7.5-11.0) fL Gran % (36.0-66.0) % Immature Gran % (Auto) (0.00-0.4) % Nucleat RBC Rel Count (0.00-0.1) % Eos # (Auto) (0-0.5) x10^3/uL Immature Gran # (Auto) (0.00-0.03) x10^3u/L Absolute Lymphs (auto) (1.0-4.6) x10^3/uL Absolute Monos (auto) (0.0-1.3) x10^3/uL Absolute Nucleated RBC (0.00-0.01) x10^3u/L Lymphocytes % (24.0-44.0) % Monocytes % (0.0-12.0) % Eosinophils % (0.00-5.0) % Basophils % (0.0-0.4) % Absolute Granulocytes (1.4-6.9) x10^3/uL Basophils # (0-0.4) x10^3/uL Sodium (137-145) mmol/L Potassium (3.5-5.1) mmol/L Chloride (98-107) mmol/L Carbon Dioxide (22-30) mmol/L Anion Gap (5-15) MEQ/L BUN (7-17) mg/dL Creatinine (0.52-1.04) mg/dL Estimated GFR ML/MIN Glucose (74-106) mg/dL POC Glucometer 210 H 96 (74 to 106) mg/dL Hemoglobin A1c 7.71 H (4.5-6.0) % Calcium (8.4-10.2) mg/dL 02/12/23 02/12/23 Range/Units 05:22 05:22 WBC 7.3 (4.0-10.5) x10^3/uL RBC 4.37 (4.1-5.4) x10^6/uL Hgb 12.8 (12.0-16.0) g/dL Hct 40.5 (35-47) % MCV 92.7 (78-100) fL MCH 29.3 (26-32) pg MCHC 31.6 L (32-36) g/dL RDW 13.8 (11.5-14.0) % Plt Count 178 (150-450) x10^3/uL MPV 12.8 H (7.5-11.0) fL Gran % 55.2 (36.0-66.0) % Immature Gran % (Auto) 0.4 (0.00-0.4) % Nucleat RBC Rel Count 0.0 (0.00-0.1) % Eos # (Auto) 0.21 (0-0.5) x10^3/uL Immature Gran # (Auto) 0.03 (0.00-0.03) x10^3u/L Absolute Lymphs (auto) 2.31 (1.0-4.6) x10^3/uL Absolute Monos (auto) 0.68 (0.0-1.3) x10^3/uL Absolute Nucleated RBC 0.00 (0.00-0.01) x10^3u/L Lymphocytes % 31.5 (24.0-44.0) % Monocytes % 9.3 (0.0-12.0) % Eosinophils % 2.9 (0.00-5.0) % Basophils % 0.7 (0.0-0.4) % Absolute Granulocytes 4.06 (1.4-6.9) x10^3/uL Basophils # 0.05 (0-0.4) x10^3/uL Sodium 138 (137-145) mmol/L Potassium 3.9 (3.5-5.1) mmol/L Chloride 102 (98-107) mmol/L Carbon Dioxide 27 (22-30) mmol/L Anion Gap 12.8 (5-15) MEQ/L BUN 11 (7-17) mg/dL Creatinine 0.60 (0.52-1.04) mg/dL Estimated GFR > 60.0 ML/MIN Glucose 102 (74-106) mg/dL POC Glucometer (74 to 106) mg/dL Hemoglobin A1c (4.5-6.0) % Calcium 9.4 (8.4-10.2) mg/dL Radiology Exams: Radiology Procedures Category Date Time Status FOOT (MINIMUM 3 VIEWS) Stat Exams 02/10/23 19:31 Completed MRI LOWER EXT W/O CONTRAST [MRI] Stat Exams 02/11/23 13:57 Completed VENOUS UNILAT/LIMITED EXTREMIT [US] Routine Exams 02/11/23 22:46 Completed Assessment/Plan (1) Diabetic foot ulcer associated with type 2 diabetes mellitus, with fat layer exposed Current Visit: Yes Status: Acute Assessment & Plan: POD#1 Patient progressing with improving clinical picture Will plan for IV abx to continue for now. Awaiting soft tissue cultures and bone biopsy Will plan according to soft tissue cultures at this time Radiology reviewed: independent review demonstrating no T1 dropout and No increased signal T2. I do not suspect OM at this time but will await Bone biopsy before proceeding with delayed primary closure of wound. This will likely be preformed outpatient due to awaiting bone biopsy. Likely D/c Tuesday or Tuesday Will await cultures for immediate d/c plan Code(s): E11.621 - TYPE 2 DIABETES MELLITUS WITH FOOT ULCER; L97.502 - NON-PRS CHRONIC ULCER OTH PRT UNSP FOOT W FAT LAYER EXPOSED (2) Rheumatoid arthritis Current Visit: Yes Status: Acute Code(s): M06.9 - RHEUMATOID ARTHRITIS, UNSPECIFIED (3) Hayden thyroiditis, fibrous variant Current Visit: Yes Status: Acute Code(s): E06.3 - AUTOIMMUNE THYROIDITIS (4) Type 2 diabetes mellitus, uncontrolled Current Visit: No Status: Chronic Code(s): E11.65 - TYPE 2 DIABETES MELLITUS WITH HYPERGLYCEMIA (5) Tobacco abuse Current Visit: No Status: Chronic Code(s): Z72.0 - TOBACCO USE (6) Cellulitis Current Visit: Yes Status: Acute Code(s): L03.90 - CELLULITIS, UNSPECIFIED (7) Hx of diabetes mellitus Current Visit: Yes Status: Acute Code(s): Z86.39 - PERSONAL HISTORY OF ENDO, NUTRITIONAL AND METABOLIC DISEASE
[2023-02-12] MEDS: Glucophage 500 MG PO SCH ×2 (08:33→16:03)
[2023-02-12] MEDS: Januvia 50 MG PO SCH ×2 (08:33→16:03)
--- NOTE | 2023-02-12 08:58 | PCM.NOTE ---
Date and Time: 02/12/23 0857 Subjective Assessment: doing ok - Review of Systems Constitutional: No Fever, No Chills Eyes: No Symptoms Ears, Nose, & Throat: No Symptoms Respiratory: No Cough, No Short Of Breath Cardiac: No Chest Pain, No Edema, No Syncope Abdominal/Gastrointestinal: No Abdominal Pain, No Nausea, No Vomiting, No Diarrhea Genitourinary Symptoms: No Dysuria Musculoskeletal: No Back Pain, No Neck Pain Skin: No Rash Neurological: No Dizziness, No Focal Weakness, No Sensory Changes Psychological: No Symptoms Endocrine: No Symptoms Hematologic/Lymphatic: No Symptoms Immunological/Allergic: No Symptoms Objective Exam General Appearance: no apparent distress, alert Neurologic Exam: alert, oriented x 3, cooperative, normal mood/affect, nml cerebellar function, sensation nml, No motor deficits Skin Exam: normal color, warm, dry Wound Assessment: Skin/Wound Assessment Wound/Incision Assessment Start: 02/10/23 21:46 Text: Status: Active Freq: Q6H Protocol: Document 02/12/23 08:00 LANEYRAKEL (Rec: 02/12/23 08:15 [facility] [id number]) Wound/Incision Assessment Right Toe Wound Assessment Shift Assessment Wound Stage Non Pressure Wound Dressing Status Changed Drainage Amount None Primary Dressing Gauze Pads Secondary Dressing Gauze Roll/Wrap Comment TOES PINK/WARM Wound Photo Photo Taken Yes Date: 02/10/23 Time: 21:30 Eye Exam: PERRL, EOMI, eyes nml inspection Ears, Nose, Throat Exam: normal ENT inspection, pharynx normal, moist mucous membranes Neck Exam: normal inspection, non-tender, supple, full range of motion Respiratory Exam: normal breath sounds, lungs clear, No respiratory distress Cardiovascular Exam: regular rate/rhythm, normal heart sounds Gastrointestinal/Abdomen Exam: soft, No tenderness, No mass Extremity Exam: normal inspection, normal range of motion Back Exam: normal inspection, normal range of motion, No CVA tenderness, No vertebral tenderness Pelvic Exam: deferred Rectal Exam: deferred OBJECTIVE DATA Vital Signs: Vital Signs - 24 hr Temp Pulse Resp BP Pulse Ox 02/12/23 08:00 96.8 F 63 18 122/59 97 02/12/23 04:00 97.3 F 60 18 109/53 95 02/11/23 23:37 97.8 F 71 18 142/66 97 02/11/23 20:00 97.1 F 77 18 133/63 96 02/11/23 19:54 97.1 F 77 18 133/63 96 02/11/23 16:18 97.5 F 77 16 116/54 97 02/11/23 16:00 97.5 F 77 16 116/54 97 02/11/23 11:44 97.9 F 66 16 135/62 97 Pain Assessment - Last Documented Pain Intensity 0 Pain Scale Used 0-10 Pain Scale Intake and Output: Intake & Output 02/09/23 02/10/23 02/11/23 02/12/23 11:59 11:59 11:59 11:59 Intake Total 1640 1280 Balance 1640 1280 Weight 54.9 kg 54.9 kg Lab Results: Lab Results-Last 24 Hours 02/11/23 02/11/23 02/11/23 Range/Units 11:30 16:17 20:10 WBC (4.0-10.5) x10^3/uL RBC (4.1-5.4) x10^6/uL Hgb (12.0-16.0) g/dL Hct (35-47) % MCV (78-100) fL MCH (26-32) pg MCHC (32-36) g/dL RDW (11.5-14.0) % Plt Count (150-450) x10^3/uL MPV (7.5-11.0) fL Gran % (36.0-66.0) % Immature Gran % (Auto) (0.00-0.4) % Nucleat RBC Rel Count (0.00-0.1) % Eos # (Auto) (0-0.5) x10^3/uL Immature Gran # (Auto) (0.00-0.03) x10^3u/L Absolute Lymphs (auto) (1.0-4.6) x10^3/uL Absolute Monos (auto) (0.0-1.3) x10^3/uL Absolute Nucleated RBC (0.00-0.01) x10^3u/L Lymphocytes % (24.0-44.0) % Monocytes % (0.0-12.0) % Eosinophils % (0.00-5.0) % Basophils % (0.0-0.4) % Absolute Granulocytes (1.4-6.9) x10^3/uL Basophils # (0-0.4) x10^3/uL Sodium (137-145) mmol/L Potassium (3.5-5.1) mmol/L Chloride (98-107) mmol/L Carbon Dioxide (22-30) mmol/L Anion Gap (5-15) MEQ/L BUN (7-17) mg/dL Creatinine (0.52-1.04) mg/dL Estimated GFR ML/MIN Glucose (74-106) mg/dL POC Glucometer 127 H 174 H 120 H (74 to 106) mg/dL Hemoglobin A1c (4.5-6.0) % Calcium (8.4-10.2) mg/dL 02/11/23 02/12/23 02/12/23 Range/Units Unknown 00:04 04:39 WBC (4.0-10.5) x10^3/uL RBC (4.1-5.4) x10^6/uL Hgb (12.0-16.0) g/dL Hct (35-47) % MCV (78-100) fL MCH (26-32) pg MCHC (32-36) g/dL RDW (11.5-14.0) % Plt Count (150-450) x10^3/uL MPV (7.5-11.0) fL Gran % (36.0-66.0) % Immature Gran % (Auto) (0.00-0.4) % Nucleat RBC Rel Count (0.00-0.1) % Eos # (Auto) (0-0.5) x10^3/uL Immature Gran # (Auto) (0.00-0.03) x10^3u/L Absolute Lymphs (auto) (1.0-4.6) x10^3/uL Absolute Monos (auto) (0.0-1.3) x10^3/uL Absolute Nucleated RBC (0.00-0.01) x10^3u/L Lymphocytes % (24.0-44.0) % Monocytes % (0.0-12.0) % Eosinophils % (0.00-5.0) % Basophils % (0.0-0.4) % Absolute Granulocytes (1.4-6.9) x10^3/uL Basophils # (0-0.4) x10^3/uL Sodium (137-145) mmol/L Potassium (3.5-5.1) mmol/L Chloride (98-107) mmol/L Carbon Dioxide (22-30) mmol/L Anion Gap (5-15) MEQ/L BUN (7-17) mg/dL Creatinine (0.52-1.04) mg/dL Estimated GFR ML/MIN Glucose (74-106) mg/dL POC Glucometer 210 H 96 (74 to 106) mg/dL Hemoglobin A1c 7.71 H (4.5-6.0) % Calcium (8.4-10.2) mg/dL 02/12/23 02/12/23 02/12/23 Range/Units 05:22 05:22 08:32 WBC 7.3 (4.0-10.5) x10^3/uL RBC 4.37 (4.1-5.4) x10^6/uL Hgb 12.8 (12.0-16.0) g/dL Hct 40.5 (35-47) % MCV 92.7 (78-100) fL MCH 29.3 (26-32) pg MCHC 31.6 L (32-36) g/dL RDW 13.8 (11.5-14.0) % Plt Count 178 (150-450) x10^3/uL MPV 12.8 H (7.5-11.0) fL Gran % 55.2 (36.0-66.0) % Immature Gran % (Auto) 0.4 (0.00-0.4) % Nucleat RBC Rel Count 0.0 (0.00-0.1) % Eos # (Auto) 0.21 (0-0.5) x10^3/uL Immature Gran # (Auto) 0.03 (0.00-0.03) x10^3u/L Absolute Lymphs (auto) 2.31 (1.0-4.6) x10^3/uL Absolute Monos (auto) 0.68 (0.0-1.3) x10^3/uL Absolute Nucleated RBC 0.00 (0.00-0.01) x10^3u/L Lymphocytes % 31.5 (24.0-44.0) % Monocytes % 9.3 (0.0-12.0) % Eosinophils % 2.9 (0.00-5.0) % Basophils % 0.7 (0.0-0.4) % Absolute Granulocytes 4.06 (1.4-6.9) x10^3/uL Basophils # 0.05 (0-0.4) x10^3/uL Sodium 138 (137-145) mmol/L Potassium 3.9 (3.5-5.1) mmol/L Chloride 102 (98-107) mmol/L Carbon Dioxide 27 (22-30) mmol/L Anion Gap 12.8 (5-15) MEQ/L BUN 11 (7-17) mg/dL Creatinine 0.60 (0.52-1.04) mg/dL Estimated GFR > 60.0 ML/MIN Glucose 102 (74-106) mg/dL POC Glucometer 119 H (74 to 106) mg/dL Hemoglobin A1c (4.5-6.0) % Calcium 9.4 (8.4-10.2) mg/dL Radiology Exams: Radiology Procedures Category Date Time Status FOOT (MINIMUM 3 VIEWS) Stat Exams 02/10/23 19:31 Completed MRI LOWER EXT W/O CONTRAST [MRI] Stat Exams 02/11/23 13:57 Completed VENOUS UNILAT/LIMITED EXTREMIT [US] Routine Exams 02/11/23 22:46 Completed Assessment/Plan (1) Diabetic foot ulcer associated with type 2 diabetes mellitus, with fat layer exposed Current Visit: Yes Status: Acute Code(s): E11.621 - TYPE 2 DIABETES MELLITUS WITH FOOT ULCER; L97.502 - NON-PRS CHRONIC ULCER OTH PRT UNSP FOOT W FAT LAYER EXPOSED
[2023-02-12] MEDS ORDERED: TROUGH DRUG LEVELS IJ ONE (09:30)
[2023-02-12] MEDS: ENOXAPARIN SODIUM SQ SCH (09:47)
[2023-02-12] MEDS: VITAMIN D PO SCH (09:47)
[2023-02-12] MEDS: ECOTRIN 81 MG PO SCH (09:47)
[2023-02-12] MEDS: FOLATE 1 MG PO SCH (09:47)
[2023-02-12] MEDS: Zetia 10 MG PO SCH (09:47)
[2023-02-12] MEDS: VANCOMYCIN 1 GRAM/200 ML BAG 1 GM/200 ML PIGGYBACK IV SCH (09:47)
[2023-02-12] MEDS: SYNTHROID 75 MCG PO SCH (09:47)
[2023-02-12] MEDS: Lantus Insulin SQ SCH (16:00)
[2023-02-12] MEDS: VANCOMYCIN 1.25 GM/250 ML BAG 1.25 GM/250 ML PIGGYBACK IV SCH (21:03)
[2023-02-12] MEDS: ZOCOR 20MG PO SCH (21:03)
[2023-02-13] MEDS: TYLENOL EXTRA STRENGTH 500 MG PO PRN (04:07)
[2023-02-13] MEDS: PIPERACILLIN/TAZOBACTAM 3.375 GM in Sodium Chloride 100ML MINI-BAG PLUS 100 ML IV SCH ×4 (06:08→23:42)
[2023-02-13] MEDS: Glucophage 500 MG PO SCH ×2 (08:12→16:27)
[2023-02-13] MEDS: Januvia 50 MG PO SCH ×2 (08:12→16:27)
--- NOTE | 2023-02-13 08:20 | PCM.NOTE ---
Date and Time: 02/13/23 0820 Subjective Assessment: POD#2 s/p I&D w bone debridement (open) + bone biopsy. Patient denies any constitutional symptoms. Minimal pain however controlled. No other complaints. Physical Exam - Narrative Narrative Physical Exam: Podiatry Physical Exam OBJECTIVE DATA Vital Signs: Vital Signs - 24 hr Temp Pulse Resp BP Pulse Ox 02/13/23 07:13 97.1 F 63 16 113/58 96 02/13/23 04:00 97.1 F 65 18 125/60 96 02/13/23 00:00 97.8 F 69 16 113/53 97 02/12/23 19:59 97.1 F 66 16 119/57 96 02/12/23 16:00 98.6 F 63 18 122/59 97 02/12/23 12:00 97.1 F 66 18 112/56 95 Pain Assessment - Last Documented Pain Intensity 2 Pain Scale Used 0-10 Pain Scale Intake and Output: Intake & Output 02/10/23 02/11/23 02/12/23 02/13/23 11:59 11:59 11:59 11:59 Intake Total 1640 1760 2357 Balance 1640 1760 2357 Weight 54.9 kg 54.9 kg Lab Results: Lab Results-Last 24 Hours 02/12/23 02/12/23 02/12/23 Range/Units 08:32 09:30 11:54 POC Glucometer 119 H 126 H (74 to 106) mg/dL Vancomycin Trough 9.28 L (10-20) ug/mL 02/12/23 02/12/23 02/13/23 Range/Units 16:15 21:28 06:46 POC Glucometer 148 H 128 H 129 H (74 to 106) mg/dL Vancomycin Trough (10-20) ug/mL Radiology Exams: Radiology Procedures Category Date Time Status MRI LOWER EXT W/O CONTRAST [MRI] Stat Exams 02/11/23 13:57 Completed VENOUS UNILAT/LIMITED EXTREMIT [US] Routine Exams 02/11/23 22:46 Completed Assessment/Plan (1) Diabetic foot ulcer associated with type 2 diabetes mellitus, with fat layer exposed Current Visit: Yes Status: Acute Assessment & Plan: POD#2 Patient progressing with clinical picture stable Radiology reviewed: independent review demonstrating no T1 dropout and No increased signal T2. I do not suspect OM at this time but will await Bone biopsy before proceeding with decision for surgical vs nonsurgical treatment going forward. Awaiting soft tissue cultures and bone biopsy. Will likely plan for Oral abx based on preliminary culture and anticipated d/c Tuesday. IV abx to continue for now. Will await cultures for ultimate d/c plan Following with you Code(s): E11.621 - TYPE 2 DIABETES MELLITUS WITH FOOT ULCER; L97.502 - NON-PRS CHRONIC ULCER OTH PRT UNSP FOOT W FAT LAYER EXPOSED (2) Rheumatoid arthritis Current Visit: Yes Status: Acute Code(s): M06.9 - RHEUMATOID ARTHRITIS, UNSPECIFIED (3) Hayden thyroiditis, fibrous variant Current Visit: Yes Status: Acute Code(s): E06.3 - AUTOIMMUNE THYROIDITIS (4) Type 2 diabetes mellitus, uncontrolled Current Visit: No Status: Chronic Code(s): E11.65 - TYPE 2 DIABETES MELLITUS WITH HYPERGLYCEMIA (5) Tobacco abuse Current Visit: No Status: Chronic Code(s): Z72.0 - TOBACCO USE (6) Cellulitis Current Visit: Yes Status: Acute Code(s): L03.90 - CELLULITIS, UNSPECIFIED (7) Hx of diabetes mellitus Current Visit: Yes Status: Acute Code(s): Z86.39 - PERSONAL HISTORY OF ENDO, NUTRITIONAL AND METABOLIC DISEASE
--- NOTE | 2023-02-13 08:25 | PCM.NOTE ---
Date and Time: 02/13/23 08 Subjective Assessment: doing ok - Review of Systems Constitutional: No Fever, No Chills Eyes: No Symptoms Ears, Nose, & Throat: No Symptoms Respiratory: No Cough, No Short Of Breath Cardiac: No Chest Pain, No Edema, No Syncope Abdominal/Gastrointestinal: No Abdominal Pain, No Nausea, No Vomiting, No Diarrhea Genitourinary Symptoms: No Dysuria Musculoskeletal: No Back Pain, No Neck Pain Skin: No Rash Neurological: No Dizziness, No Focal Weakness, No Sensory Changes Psychological: No Symptoms Endocrine: No Symptoms Hematologic/Lymphatic: No Symptoms Immunological/Allergic: No Symptoms Objective Exam General Appearance: no apparent distress, alert Neurologic Exam: alert, oriented x 3, cooperative, normal mood/affect, nml cerebellar function, sensation nml, No motor deficits Skin Exam: normal color, warm, dry Wound Assessment: Skin/Wound Assessment Wound/Incision Assessment Start: 02/10/23 21:46 Text: Status: Active Freq: Q6H Protocol: Document 02/13/23 02:00 WW (Rec: 02/13/23 02:10 WW [id number]) Wound/Incision Assessment Right Toe Wound Assessment Shift Assessment Wound Stage Non Pressure Wound Dressing Status Dry & Intact Drainage Amount None Primary Dressing Gauze Pads Secondary Dressing Mike wrap CDI Comment Dressing per Dr. Garza Wound Photo Photo Taken Yes Date: 02/10/23 Time: 21:30 Eye Exam: PERRL, EOMI, eyes nml inspection Ears, Nose, Throat Exam: normal ENT inspection, pharynx normal, moist mucous membranes Neck Exam: normal inspection, non-tender, supple, full range of motion Respiratory Exam: normal breath sounds, lungs clear, No respiratory distress Cardiovascular Exam: regular rate/rhythm, normal heart sounds Gastrointestinal/Abdomen Exam: soft, No tenderness, No mass Extremity Exam: normal inspection, normal range of motion Back Exam: normal inspection, normal range of motion, No CVA tenderness, No vertebral tenderness Pelvic Exam: deferred Rectal Exam: deferred OBJECTIVE DATA Vital Signs: Vital Signs - 24 hr Temp Pulse Resp BP Pulse Ox 02/13/23 07:13 97.1 F 63 16 113/58 96 02/13/23 04:00 97.1 F 65 18 125/60 96 02/13/23 00:00 97.8 F 69 16 113/53 97 05/20/23 19:59 97.1 F 66 16 119/57 96 02/12/23 16:00 98.6 F 63 18 122/59 97 02/12/23 12:00 97.1 F 66 18 112/56 95 Pain Assessment - Last Documented Pain Intensity 2 Pain Scale Used 0-10 Pain Scale Intake and Output: Intake & Output 02/10/23 02/11/23 02/12/23 02/13/23 11:59 11:59 11:59 11:59 Intake Total 1640 1760 2357 Balance 1640 1760 2357 Weight 54.9 kg 54.9 kg Lab Results: Lab Results-Last 24 Hours 02/12/23 02/12/23 02/12/23 Range/Units 08:32 09:30 11:54 POC Glucometer 119 H 126 H (74 to 106) mg/dL Vancomycin Trough 9.28 L (10-20) ug/mL 02/12/23 02/12/23 02/13/23 Range/Units 16:15 21:28 06:46 POC Glucometer 148 H 128 H 129 H (74 to 106) mg/dL Vancomycin Trough (10-20) ug/mL Radiology Exams: Radiology Procedures Category Date Time Status MRI LOWER EXT W/O CONTRAST [MRI] Stat Exams 02/11/23 13:57 Completed VENOUS UNILAT/LIMITED EXTREMIT [US] Routine Exams 02/11/23 22:46 Completed Assessment/Plan (1) Diabetic foot ulcer associated with type 2 diabetes mellitus, with fat layer exposed Current Visit: Yes Status: Acute Qualifiers: Diabetic foot ulcer location: unspecified part of foot Laterality: unspecified laterality Qualified Code(s): E11.621 - Type 2 diabetes mellitus with foot ulcer; L97.502 - Non-pressure chronic ulcer of other part of unspecified foot with fat layer exposed Assessment & Plan: Chief Complaint Diagnosis Cellulitis/lymphangitis Allergies Allergy/AdvReac Type Severity Reaction Status Date / Time No Known Drug Allergies Allergy Verified 02/10/23 18:04 Vital Signs (Last 24 hours) Temp Pulse Resp BP Pulse Ox 02/13/23 07:13 97.1 F 63 16 113/58 96 02/13/23 04:00 97.1 F 65 18 125/60 96 02/13/23 00:00 97.8 F 69 16 113/53 97 02/12/23 19:59 97.1 F 66 16 119/57 96 02/12/23 16:00 98.6 F 63 18 122/59 97 02/12/23 12:00 97.1 F 66 18 112/56 95 Home Medications Medication Instructions Recorded Confirmed Last Taken Type Ezetimibe/Simvastatin 1 tab PO DAILY 02/10/23 02/10/23 Unknown History [Ezetimibe-Simvastatin 10-40 mg] Insulin Glargine,Hum.rec.anlog 10 unit SQ DAILY 02/10/23 02/10/23 Unknown History [Alma Rosa Alfaro] Insulin Lispro [Humalog] See Protocol SQ UD 02/10/23 02/10/23 Unknown History Current Medications Generic Name Dose Route Start Last Admin Trade Name Freq PRN Reason Stop Dose Admin Acetaminophen 1,000 mg 02/10/23 22:39 02/13/23 04:07 Acetaminophen 500 Mg Tablet PO 03/12/23 22:38 1,000 mg Q8HPRN PRN Administration HEADACHE Hydrocodone Bitart/Acetaminophen 1 tab 02/11/23 20:02 02/12/23 16:00 Hydrocodone /Apap 7.5/325 Mg 1 Each Tablet PO 02/16/23 20:01 1 tab QID PRN PRN Administration PAIN Aspirin 81 mg 02/11/23 10:00 02/12/23 09:47 Aspirin 81 Mg Tablet.Ec PO 03/13/23 09:59 81 mg DAILY ELFEGO Administration Cholecalciferol 2,000 unit 02/11/23 10:00 02/12/23 09:47 Cholecalciferol (Vitamin D3) 1000 Unit Tablet PO 03/13/23 09:59 2,000 unit DAILY ELFEGO Administration Device 1 02/14/23 09:30 Therapuetic Drug Level Monitor Each IJ 02/14/23 09:31 1XONLY ONE Ezetimibe 10 mg 02/11/23 10:00 02/12/23 09:47 Ezetimibe 10 Mg Tab PO 03/13/23 09:59 10 mg DAILY ELFEGO Administration Enoxaparin Sodium 40 mg 02/11/23 10:00 02/12/23 09:47 Enoxaparin Sodium 40 Mg/0.4 Ml Syringe SQ 03/13/23 09:59 40 mg DAILY ELFEGO Administration Folic Acid 1 mg 02/11/23 10:00 05/20/23 09:47 Folic Acid 1 Mg Tablet PO 03/13/23 09:59 1 mg DAILY ELFEGO Administration Hydromorphone HCl 0.5 mg 02/11/23 19:59 02/12/23 00:08 Hydromorphone 1 Mg/1ml Inj IV 02/16/23 19:58 0.5 mg Q4H PRN PRN Administration Severe Breakthrough Pain Piperacillin Sod/Tazobactam 100 mls @ 200 mls/hr 02/11/23 00:00 02/13/23 06:08 Sod 3.375 gm/ Sodium Chloride IV 02/14/23 00:00 200 mls/hr Q6HT ELFEGO Administration Vancomycin HCl 1.25 gm in 250 mls @ 150 mls/hr 02/12/23 22:00 02/12/23 21:03 Vancomycin 1.25 Gm/250 Ml Bag IV 02/15/23 21:59 150 mls/hr Q12HT ELFEGO Administration Ibuprofen 800 mg 02/10/23 23:02 02/12/23 04:41 Ibuprofen 400 Mg Tablet PO 03/12/23 23:01 800 mg Q6H PRN PRN Administration MODERATE PAIN Insulin Glargine 10 unit 02/11/23 16:00 02/12/23 16:00 Insulin Glargine 1 Unit SQ 03/13/23 15:59 10 unit 1600 ELFEGO Administration Levothyroxine Sodium 75 mcg 02/11/23 10:00 02/12/23 09:47 Levothyroxine Sodium 75 Mcg Tablet PO 03/13/23 09:59 75 mcg DAILY ELFEGO Administration Metformin HCl 500 mg 02/11/23 09:00 02/13/23 08:12 Metformin Hcl 500 Mg Tablet PO 03/13/23 08:59 500 mg BIDWM ELFEGO Administration Miscellaneous Information 0 each 02/11/23 09:00 Medication Intervention 1 Each Each 03/13/23 08:59 .RN TO CHECK WITH PT ELFEGO Simvastatin 40 mg 02/11/23 22:00 02/12/23 21:03 Simvastatin 20 Mg Tablet PO 03/13/23 21:59 40 mg HS ELFEGO Administration Sitagliptin Phosphate 50 mg 02/11/23 17:00 02/13/23 08:12 Sitagliptin Phosphate 50 Mg Tablet PO 03/13/23 16:59 50 mg BIDWM ELFGEO Administration Discontinued Medications Generic Name Dose Route Start Last Admin Trade Name Freq PRN Reason Stop Dose Admin Acetaminophen 650 mg 02/10/23 19:12 02/10/23 19:14 Acetaminophen 325 Mg Tablet PO 02/10/23 19:13 650 mg STAT STA Administration Acetaminophen Confirm 02/10/23 19:13 Acetaminophen 325 Mg Tablet Administered 02/10/23 19:14 Dose 650 mg .ROUTE .STK-MED ONE Acetaminophen 650 mg 02/10/23 20:10 Acetaminophen 325 Mg Tablet PO 03/12/23 20:09 Q4H PRN PRN PAIN AND/OR FEVER Bupivacaine HCl Confirm 02/11/23 17:07 Bupivacaine Hcl/Pf 150 Mg/30 Ml Vial Administered 02/11/23 17:08 Dose 150 mg .ROUTE .STK-MED ONE Device 1 02/12/23 09:30 02/12/23 09:46 Therapuetic Drug Level Monitor Each IJ 02/12/23 09:31 1 1XONLY ONE Administration Piperacillin Sod/Tazobactam 100 mls @ 200 mls/hr 02/10/23 18:55 02/10/23 19:08 Sod 3.375 gm/ Sodium Chloride IV 02/10/23 19:24 200 mls/hr STAT ONE Administration Vancomycin HCl 1 gm in 200 mls @ 125 mls/hr 02/10/23 18:56 02/10/23 19:44 Vancomycin 1 Gram/200 Ml Bag IV 02/10/23 20:31 125 ml/hr STAT ONE 125 mls/hr Administration Sodium Chloride Confirm 02/10/23 19:05 Sodium Chloride 100ml Mini-Bag Plus Administered 02/10/23 19:06 Dose 100 mls @ ud IV .STK-MED ONE Vancomycin HCl Confirm 02/10/23 19:42 Vancomycin 1 Gram/200 Ml Bag Administered 02/10/23 19:43 Dose 1 gm in 200 mls @ ud IV .STK-MED ONE Vancomycin HCl 1 gm in 200 mls @ 125 mls/hr 02/10/23 22:45 02/10/23 23:10 Vancomycin 1 Gram/200 Ml Bag IV 03/12/23 22:44 Not Given Q12H ELFEGO Sodium Chloride Confirm 02/11/23 00:15 Sodium Chloride 100ml Mini-Bag Plus Administered 02/11/23 00:16 Dose 100 mls @ ud IV .STK-MED ONE Sodium Chloride Confirm 02/11/23 05:18 Sodium Chloride 100ml Mini-Bag Plus Administered 02/11/23 05:19 Dose 100 mls @ ud IV .STK-MED ONE Vancomycin HCl 1 gm in 200 mls @ 125 mls/hr 02/11/23 10:00 02/12/23 09:47 Vancomycin 1 Gram/200 Ml Bag IV 03/12/23 22:44 125 mls/hr Q12HT ELFEGO Administration Ibuprofen 800 mg 02/10/23 22:40 Ibuprofen 600 Mg Tablet PO 03/12/23 22:39 Q6H PRN MODERATE PAIN Lidocaine HCl Confirm 02/11/23 17:07 Lidocaine Hcl/Pf 1 % 30 Ml Pf Sdv Administered 02/11/23 17:08 Dose 30 ml IJ .STK-MED ONE Piperacillin Sod/Tazobactam Sod Confirm 02/10/23 19:05 Piperacillin/Tazobactam Sodium 3.375 Gm Vial Administered 02/10/23 19:06 Dose 3.375 gm IV .STK-MED ONE Piperacillin Sod/Tazobactam Sod Confirm 02/11/23 00:15 Piperacillin/Tazobactam Sodium 3.375 Gm Vial Administered 02/11/23 00:16 Dose 3.375 gm IV .STK-MED ONE Piperacillin Sod/Tazobactam Sod Confirm 02/11/23 05:18 Piperacillin/Tazobactam Sodium 3.375 Gm Vial Administered 02/11/23 05:19 Dose 3.375 gm IV .STK-MED ONE Intake & Output (Last 24 hours) 02/10/23 02/11/23 02/12/23 02/13/23 11:59 11:59 11:59 11:59 Intake Total 1640 1760 2357 Balance 1640 1760 2357 Weight 54.9 kg 54.9 kg Microbiology Results (Last 24 hours) 02/10/23 18:47 Blood Blood Culture - Preliminary NO GROWTH TO DATE 02/10/23 18:46 Blood Blood Culture - Preliminary NO GROWTH TO DATE Laboratory Results (Last 24 hours) 02/13/23 02/12/23 02/12/23 06:46 21:28 16:15 POC Glucometer 129 H 128 H 148 H Vancomycin Trough 02/12/23 02/12/23 02/12/23 11:54 09:30 08:32 POC Glucometer 126 H 119 H Vancomycin Trough 9.28 L Orders (Last 24 hours) Category Date Time Status POCT GLUCOSE Stat Lab 02/12/23 08:32 Completed POCT GLUCOSE Stat Lab 02/12/23 11:54 Completed POCT GLUCOSE Stat Lab 02/12/23 16:15 Completed POCT GLUCOSE Stat Lab 02/12/23 21:28 Completed POCT GLUCOSE Stat Lab 02/13/23 06:46 Completed Vancomycin, Trough Urgent Lab 02/12/23 09:30 Completed Vancomycin, Trough Urgent Lab 02/14/23 09:30 Ordered Therapuetic Drug Level Monitor [Trough Drug Levels] Med 02/12/23 09:30 Discontinued 1 IJ 1XONLY ONE Therapuetic Drug Level Monitor [Trough Drug Levels] Med 02/14/23 09:30 Once 1 IJ 1XONLY ONE Vancomycin/Water For Inj (Peg) [Vancomycin 1.25 gm/250 Med 02/12/23 22:00 Active ml Bag] 1.25 gm in 250 ml IV Q12HT Code(s): E11.621 - TYPE 2 DIABETES MELLITUS WITH FOOT ULCER; L97.502 - NON-PRS CHRONIC ULCER OTH PRT UNSP FOOT W FAT LAYER EXPOSED
[2023-02-13] MEDS: ENOXAPARIN SODIUM SQ SCH (09:18)
[2023-02-13] MEDS: VANCOMYCIN 1.25 GM/250 ML BAG 1.25 GM/250 ML PIGGYBACK IV SCH ×2 (09:19→21:20)
[2023-02-13] MEDS: ECOTRIN 81 MG PO SCH (09:19)
[2023-02-13] MEDS: Zetia 10 MG PO SCH (09:19)
[2023-02-13] MEDS: FOLATE 1 MG PO SCH (09:19)
[2023-02-13] MEDS: VITAMIN D PO SCH (09:19)
[2023-02-13] MEDS: SYNTHROID 75 MCG PO SCH (09:19)
[2023-02-13] MEDS: Lantus Insulin SQ SCH (16:27)
[2023-02-13] MEDS: ZOCOR 20MG PO SCH (21:20)
[2023-02-14] MEDS: PIPERACILLIN/TAZOBACTAM 3.375 GM in Sodium Chloride 100ML MINI-BAG PLUS 100 ML IV SCH ×2 (05:56→13:42)
[2023-02-14] MEDS: Glucophage 500 MG PO SCH (09:12)
[2023-02-14] MEDS: Januvia 50 MG PO SCH (09:13)
[2023-02-14] MEDS: Zetia 10 MG PO SCH (09:13)
[2023-02-14] MEDS: VITAMIN D PO SCH (09:13)
[2023-02-14] MEDS: FOLATE 1 MG PO SCH (09:13)
[2023-02-14] MEDS: ECOTRIN 81 MG PO SCH (09:13)
[2023-02-14] MEDS: ENOXAPARIN SODIUM SQ SCH (09:13)
[2023-02-14] MEDS: SYNTHROID 75 MCG PO SCH (09:14)
[2023-02-14] MEDS ORDERED: TROUGH DRUG LEVELS IJ ONE (09:30)
[2023-02-14] MEDS: VANCOMYCIN 1.25 GM/250 ML BAG 1.25 GM/250 ML PIGGYBACK IV SCH (10:12)
[2023-02-14 11:59] VITALS: BP 119/57; PULSE 66; O2SAT 97
--- NOTE | 2023-02-14 14:18 | PCM.DS ---
Discharge Summary Date of Admission: 02/10/23 19:57 Date of Discharge: 02/14/23 Admitting Physician: MARY TIERNEY MD Consults: Consults on Case 02/10/23 22:36 Consult Podiatry ROUTINE Primary Care Provider: HYUN PEREZ Allergies Allergies No Known Drug Allergies Allergy (Verified 02/10/23 18:04) Hospital Summary - Vitals & Intake/Output Vital Signs: Vital Signs Temperature 97.6 F 02/14/23 11:46 Pulse Rate 66 02/14/23 11:46 Respiratory Rate 16 02/14/23 11:46 Blood Pressure 119/57 02/14/23 11:46 O2 Sat by Pulse Oximetry 97 02/14/23 11:46 Intake & Output: Intake & Output 02/12/23 02/13/23 02/14/23 02/15/23 11:59 11:59 11:59 11:59 Intake Total 1760 2957 3038 480 Balance 1760 2957 3038 480 Weight 54.9 kg - Lab Result Diagrams: 02/12/23 05:22 02/12/23 05:22 Lab Results-Last 24 Hrs: Lab Results-Last 24 Hours 02/13/23 02/13/23 02/14/23 Range/Units 15:36 21:26 07:16 POC Glucometer 155 H 112 H 127 H (74 to 106) mg/dL Vancomycin Trough (10-20) ug/mL 02/14/23 02/14/23 Range/Units 09:33 11:23 POC Glucometer 101 (74 to 106) mg/dL Vancomycin Trough 12.97 (10-20) ug/mL Micro Results-Entire Visit: Microbiology 02/11/23 14:03 Wound Culture - Preliminary Toe - R Big (Greater) No growth. 02/10/23 18:47 Blood Culture - Preliminary Blood NO GROWTH TO DATE 02/10/23 18:46 Blood Culture - Preliminary Blood NO GROWTH TO DATE Accuchecks Date 02/14/23 Date 02/14/23 Date 02/13/23 Time 11:26 Time 07:38 Discharge Exam Wound Assessment: Skin/Wound Assessment Wound/Incision Assessment Start: 02/10/23 21:46 Text: Status: Active Freq: Q6H Protocol: Document 02/14/23 08:00 AW (Rec: 02/14/23 08:37 AW [id number]) Wound/Incision Assessment Right Toe Wound Assessment Shift Assessment Wound Type Incision Wound Stage Non Pressure Wound Dressing Status Dry & Intact Drainage Amount None Primary Dressing Gauze Pads Secondary Dressing Mike wrap CDI Comment DRESSINGS PLACED BY DR. GARCIA 02/13/23 REMAIN CDI. Wound Photo Photo Taken Yes Comment: IN THE CHART- HARD COPY. - Discharge Disposition: Home, Self-Care Condition: Stable Prescriptions: New Levofloxacin [Levofloxacin 500 MG Tablet] 500 mg PO DAILY #10 tablet Continue Aspirin [Low Dose Aspirin EC] 81 mg PO DAILY Leflunomide 20 mg PO DAILY Cholecalciferol (Vitamin D3) [Vitamin D] 50 mcg PO DAILY Sitagliptin Phos/Metformin HCl [Janumet Xr 100-1,000 mg Tablet] 50 - 500 mg PO BID Levothyroxine Sodium 50 Mcg [Synthroid 50 Mcg] 75 mcg PO DAILY Folic Acid 1 mg PO DAILY Insulin Glargine,Hum.rec.anlog [Alma Rosa Alfaro] 10 unit SQ DAILY Ezetimibe/Simvastatin [Ezetimibe-Simvastatin 10-40 mg] 1 tab PO DAILY Insulin Lispro [Humalog] See Protocol SQ UD Additional Instructions: CHANGE DRESSINGS DAILY INSTRUCTED PER DR. GARCIA'S OFFICE. BEAR WEIGHT ON OP FOOT HEEL ONLY FOLLOW UP WITH DR. GARCIA SCHEDULED 02/17/23 Diabetic follow up with Summer Verma NP Follow up with: HYUN PEREZ NP [Primary Care Provider] -
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
[2023-02-16] MEDS ORDERED: TROUGH DRUG LEVELS IJ ONE (09:30)
== END 2023-02-14 14:46 | disposition home or self-care (01) ==
LOC: ED 17:53 → MED SURG 19:57
PROVIDERS: ADMIT Internal Medicine Critical Care Medicine; ATTEND Family Medicine
DX: E11.621 Type 2 diabetes mellitus with foot ulcer (principal); L03.031 Cellulitis of right toe; I10 Essential (primary) hypertension; E78.5 Hyperlipidemia, unspecified; M06.9 Rheumatoid arthritis, unspecified; E03.9 Hypothyroidism, unspecified; M79.671 Pain in right foot; E06.3 Autoimmune thyroiditis; E11.65 Type 2 diabetes mellitus with hyperglycemia; Z79.899 Other long term (current) drug therapy; Z20.828 Contact with and (suspected) exposure to other viral communicable diseases; Z72.0 Tobacco use; Z86.39 Personal history of other endocrine, nutritional and metabolic disease
CPT/HCPCS: 28005; 36000; 36415; 73630; 73718; 80048; 80053; 80202; 81001; 82947; 83036; 83605; 85025; 87040; 87070; 93268; 93971; 96365; 96367; 99024; 99285; G0378; A6260; J1170; J1650; J2001; A9270-GY; J3370

== ENCOUNTER 2023-03-04 06:17 | Day surgery (SDC) | payer BC ==
[2023-03-04] MEDS ORDERED: Lactated Ringers 1,000 ML IV SCH (07:00)
[2023-03-04] MEDS ORDERED: DIPRIVAN 200 MG/20 ML IV ONE (07:55)
[2023-03-04] MEDS ORDERED: Xylocaine-Mpf 2% 5 Ml Vial ONE (07:55)
[2023-03-04] MEDS ORDERED: Versed 2 MG/2 ML Injection ONE (07:56)
[2023-03-04 08:53] VITALS: O2SAT 95
[2023-03-04 09:09] VITALS: BP 113/55; PULSE 72
--- NOTE | 2023-03-04 09:40 | OP ---
SURGERY DATE/TIME: 03/04/2023 0809 PREOPERATIVE DIAGNOSIS: Screening exam. POSTOPERATIVE DIAGNOSIS: Small polyp lesion in the transverse colon. PROCEDURE: Colonoscopy with cold forceps biopsy. SURGEON: Dr. Lundberg. ANESTHESIA: MAC. Medications given by anesthesia department. HISTORY: The patient is a 57-year-old white female presenting now for her first screening colonoscopy. The patient was appraised of the risks of the procedure including the risk of perforation, phlebitis, untoward reaction to medication, bleeding and missed lesions. The patient verbalized her understanding and desired to have the procedure performed. DESCRIPTION OF PROCEDURE: The patient was given the medications by the anesthesia department. She had continuous pulse oximetry, ECG monitoring and intermittent blood pressure monitoring during the examination. She was placed in the left lateral decubitus position. A digital rectal examination was performed and revealed normal anal sphincter tone and no masses. The flexible Olympus pediatric colonoscope was used to intubate the rectum. A view of the colon was developed sequentially to the cecum. Upon insertion and withdrawal, there was noted one small polypoid area in the transverse colon that was destroyed and biopsied using one pass of cold forceps. No other mucosal lesions being encountered, the scope was removed from the patient who tolerated the procedure well and sent back to OP recovery in good condition.
== END 2023-03-04 09:15 | disposition home or self-care (01) ==
LOC: SDC 06:17
PROVIDERS: ATTEND Family Medicine
DX: Z12.11 Encounter for screening for malignant neoplasm of colon (principal); D12.3 Benign neoplasm of transverse colon; E11.9 Type 2 diabetes mellitus without complications
CPT/HCPCS: 82947; 88305; J2250; J2704

== ENCOUNTER 2024-07-27 05:59 | Day surgery (SDC) | payer BC ==
[2024-07-27] MEDS ORDERED: MARCAINE 0.25% PF/ EPI 1:200,000 ONE (06:30)
[2024-07-27] MEDS: Lactated Ringers 1,000 ML IV SCH (06:52)
[2024-07-27] MEDS: CEFAZOLIN 2 GM/100 ML NaCl 2 GM/100 ML IVPB IV SCH (06:53)
[2024-07-27] MEDS: Decadron 4 MG PO ONE (06:54)
[2024-07-27] MEDS: TYLENOL EXTRA STRENGTH 500 MG PO ONE (06:54)
[2024-07-27] MEDS: NEURONTIN PO ONE (06:54)
[2024-07-27] MEDS: celeBREX 100 MG PO ONE (06:55)
[2024-07-27 07:13] LABS: Absolute Neutrophil Ct (ANC) 4.36 x10^3/uL (1.56-6.13); BASOPHIL % 0.5 % (0.1-1.2); Basophil (Absolute #) 0.04 x10^3/uL (0.01-0.08); Eosinophil % 2.5 % (0.7-5.8); Hematocrit 38.6 % (34.1-44.9); Hemoglobin 12.7 g/dL (11.2-15.7); IMMATURE GRAN # 0.03 x10^3u/L (0.001-0.031); IMMATURE GRAN % 0.4 % (0.001-0.429); Lymphocyte (Absolute #) 2.53 x10^3/uL (1.18-3.74); Lymphocytes % 32.1 % (19.3-51.7); Mean Cell Volume 87.3 fL (79.4-94.8); Mean Corpuscular Hemoglobin 28.7 pg (25.6-32.2); Mean Corpuscular Hgb Concent. 32.9 g/dL (32.2-35.5); Mean Platelet Volume 11.7 fL (9.4-12.3); Monocyte (Absolute #) 0.72 x10^3/uL (0.24-0.86); Monocytes % 9.1 % (4.7-12.5); Neutrophil % 55.4 % (34.0-71.1); Platelet Count 203 x10^3/uL (182-369); Red Blood Count 4.42 x10^6/uL (3.93-5.22); Red Cell Distribution Width 12.3 % (11.7-14.4); White Blood Count 7.9 x10^3/uL (3.98-10.04)
[2024-07-27 07:26] LABS: ALBUMIN 4.5 g/dL (3.5-5.0); ANION GAP 14.1 MEQ/L (5-15); BILIRUBIN,TOTAL 0.4 mg/dL (0.2-1.3); Calcium 9.7 mg/dL (8.4-10.2); Creatinine 1 0.53 mg/dL (0.52-1.04); EST GLOMERULAR FILTRATION RATE 105.8 ML/MIN; Potassium 3.8 mmol/L (3.5-5.1); Total Protein 7.8 g/dL (6.3-8.2)
[2024-07-27] MEDS ORDERED: DIPRIVAN 200 MG/20 ML IV ONE (07:40)
[2024-07-27] MEDS ORDERED: ROCURONIUM BROMIDE IV ONE (07:41)
[2024-07-27] MEDS ORDERED: Xylocaine-Mpf 2% 5 Ml Vial ONE (07:41)
[2024-07-27] MEDS ORDERED: Zofran 4 MG/2 ML VIAL ONE (07:41)
[2024-07-27] MEDS ORDERED: Versed 2 MG/2 ML Injection ONE (07:43)
[2024-07-27] MEDS ORDERED: SUBLIMAZE 100 MCG/2 ML ONE (07:44)
[2024-07-27] MEDS ORDERED: PHENYLEPHRINE HCL ONE (08:27)
[2024-07-27] MEDS ORDERED: BRIDION 200MG/2ML IV ONE (08:57)
[2024-07-27 09:45] VITALS: RESP 18; TEMP 97.2
[2024-07-27 09:53] VITALS: BP 119/55; PULSE 90; O2SAT 95
--- NOTE | 2024-07-29 21:32 | OP ---
SURGERY DATE/TIME: 07/27/2024 [id number] PREOPERATIVE DIAGNOSES: 1) Left arm bursitis with mass. 2) Right posterior elbow painful scar. POSTOPERATIVE DIAGNOSES: 1) Left arm bursitis with mass. 2) Right posterior elbow painful scar. PROCEDURES PERFORMED: 1) Left olecranon bursectomy. 2) Excision of right elbow scar mass. SURGEON: Tanner Arauz MD. ANESTHESIA: General. FINDINGS: A left elbow mass which was about 3 x 2 x 1 cm, rubbery mass over the olecranon which appeared like thickened chronic olecranon bursitis. The right elbow mass was a hard, rubbery nodule protruding 1 cm into the skin but not penetrating the skin along her scar from previous ulnar nerve transposition. This also did not appear to involve the nerve. INDICATION FOR PROCEDURE: Patient is a 59-year-old white female with painful bilateral elbows. The left appeared to be a chronic elbow bursitis or possible rheumatoid nodule. The right with a painful scar nodule which protruded 1 cm at the proximal end of her ulnar nerve transposition scar. She wished to have this removed for pain relief. DESCRIPTION OF PROCEDURE: Patient was seen in the holding room. We identified the left elbow as correct. She had 2 g of Kefzol IV preoperatively. She was taken to the OR where she had general anesthesia, had supine positioning with a lazy lateral position with the wedge under her left trunk, had sterile prepping and draping of the left upper extremity. Time-out was performed, identifying both extremities as the operative field. The olecranon bursa scar incision was marked, curving around the radial side of the olecranon tip to avoid incision right over the olecranon prominence. This was pre-injected with 8 mL of 0.25% Marcaine with epinephrine. Tourniquet was inflated around the upper arm to 250 mmHg. Total tourniquet time was about 10 minutes. The incision was made. The dissection was done around the mass using scissors. This was then sent as permanent specimen. Tourniquet was released with minimal bleeding. The wound was irrigated and then closed with 2-0 Vicryl and 3-0 nylon interrupted sutures. Sterile dressings were applied. Patient then was repositioned. Her IV in her right hand was moved to her left hand and she had the wedge moved to her right thorax, had sterile prepping and draping of the right upper extremity. The lesion was marked for an elliptical excision about 1.5 cm long by about 8 mm wide. The ellipse was longitudinal and involved part of the previous medial posterior elbow scar from the ulnar nerve transposition. Tourniquet was inflated to 250 mmHg. Total tourniquet time was about 10 minutes. The mass was pre-injected with 6 mL of 0.25% Marcaine with epinephrine, and an elliptical excision was made in the skin, taking the mass with the skin, dissecting around and verifying that it did not appear to be the ulnar nerve, and then transecting the base taking out the entire mass. This was then irrigated and the tourniquet released. No bleeding. The subcutaneous tissue was closed with 2-0 Vicryl and the skin with 3-0 nylon. Sterile dressings were applied. ESTIMATED BLOOD LOSS: Zero. FLUIDS: Per the anesthesia record. SPECIMENS: Left and right elbow masses in separate specimen containers. DRAINS: None. COMPLICATIONS: None. PLAN: The plan is for patient to get the incisions wet in 5 days and remove the dressings then. She will go home on ibuprofen. Return in 10 to 12 days for suture removal.
== END 2024-07-27 10:11 | disposition home or self-care (01) ==
LOC: SDC 05:59
PROVIDERS: ATTEND Orthopaedic Surgery
DX: M70.22 Olecranon bursitis, left elbow (principal); M25.521 Pain in right elbow; E11.9 Type 2 diabetes mellitus without complications
CPT/HCPCS: 36415; 80053; 82947; 85025; 93005; J0690; J2250; J2371; J2405; J2704; J3010; A9270-GY